=== PATIENT | male | born 1985 | race Two or more races ===

== ENCOUNTER 2024-10-20 16:37 | Emergency (ER) | payer MEDICAID, SELFPAY ==
[2024-10-20 16:38] VITALS: BMI 30.5
[2024-10-20 17:02] VITALS: BP 164/95; PULSE 71; RESP 17; TEMP 36.8; O2SAT 100
--- NOTE | 2024-10-20 17:15 | XR_ITS ---
Examination: CT abdomen and pelvis without contrast. Coronal 3-D reconstructions. Sagittal 2-D reconstructions. Date and time of exam:October 20, 2024 1739 hrs. Indications: Left-sided flank pain beginning one hour ago Comparison October 22, 2023 CTDI: vol (mGy): 10.2 DLP: (mGycm): 558 Technique: Axial images of the abdomen have been obtained, 3 mm slice thickness Intravenous contrast material has not been administered. Low dose protocols were performed. One or more of the following dose reduction techniques were used; automated exposure control, adjustment of the mA and/or KV according to patient size, use of iterative reconstruction technique. Findings: No focal liver or splenic lesions No gallstones No pancreatic mass 4 mm lower pole left renal calculus Mild left hydronephrosis 6 mm left ureteropelvic junction calculus Aorta normal size No bowel obstruction Absent appendix No bladder mass or bladder calculi Grade 1 spondylolisthesis L5 on S1 Impression: Mild left hydronephrosis secondary to 6 mm ureteropelvic junction calculus
--- NOTE | 2024-10-20 17:16 | PD.EDRME ---
Rapid Medical Screening Exam RME Arrival date/time: 10/20/24 16:37 39-year-old male presents to the emergency department with complaints of left flank pain that began 2 hours ago. History of nephrolithiasis. I have greeted and performed a focused initial assessment of this patient. Initial appropriate labs ordered at this time. A comprehensive ED assessment and evaluation of the patient and analysis of all test and completion of medical decision making process will be conducted by additional ED provider. Chief Complaint: Abdominal Pain Time Seen by Provider: 10/20/24 16:55 Vital signs: Vital Signs Temperature 98.3 F 10/20/24 17:02 Pulse Rate 71 10/20/24 17:02 Respiratory Rate 17 10/20/24 17:02 Blood Pressure 164/95 H 10/20/24 17:02 Pulse Oximetry (%) 100 10/20/24 17:02 Oxygen Delivery Method Room Air 10/20/24 17:02
[2024-10-20] MEDS: KETOROLAC INJ 60 MG/2 ML VIAL IM (17:22)
[2024-10-20] MEDS: TAMSULOSIN HCL 0.4 MG CAPSULE PO (17:23)
[2024-10-20 17:38] LABS: Basophils % (Auto) 0 % (0-2.5); Eosinophils # (Auto) 0.2 Thou/mm3 (0.0-0.5); Eosinophils % (Auto) 2 % (0-10); Hemoglobin 15.4 g/dL (13.5-16.0); Immature Granulocytes % (Auto) 0 % (0-0); Immature Granulocytes Auto 0.03 Thou/mm3 (0.00-0.00); Lymphocytes # (Auto) 2.6 Thou/mm3 (1.0-4.8); Lymphocytes % (Auto) 29 % (10-50); Mean Corpuscular HGB Conc 33.5 g/dl (31.0-37.0); Mean Corpuscular Hemoglobin 26.1 pg (25.0-35.0); Mean Corpuscular Volume 78 fL (80-100); Monocytes # (Auto) 0.4 Thou/mm3 (0.0-0.8); Monocytes % (Auto) 5 % (0-12); Neutrophils # (Auto) 5.9 Thou/mm3 (1.8-7.7); Neutrophils % (Auto) 64 % (37-80); Nucleated Red Blood Cell % 0 /100 WBC (0); Platelet Count 240 Thou/mm3 (140-440); RDW Standard Deviation 42.2 fL (35.1-43.9); Red Blood Count 5.89 Miln/mm3 (4.50-5.90); White Blood Count 9.2 Thou/mm3 (3.8-10.6)
[2024-10-20 17:56] LABS: Prothrombin Time 10.9 Seconds (9.0-12.2)
[2024-10-20 18:01] LABS: Alanine Aminotransferase 29 U/L (10-49); Albumin, Serum 5.3 gm/dL (3.5-5.0); Alkaline Phosphatase 81 U/L (46-116); Anion Gap 12 (7-16); Aspartate Amino Transferase 23 U/L (0-34); BUN/Creatinine Ratio 14 Ratio (12-20); Bilirubin,Total 0.6 mg/dL (0.3-1.2); Blood Urea Nitrogen 15 mg/dL (9-23); Calcium 9.4 mg/dL (8.3-10.6); Calcium (Corrected) 9.4 mg/dL (8.5-10.1); Carbon Dioxide 23.9 mMol/L (20.0-31.0); Chloride 105 mMol/L (98-107); Creatinine (Component) 1.1 mg/dL (0.6-1.3); Estimated Creatinine Clearance 97.6 mL/min (>60); Globulin 2.7 gm/dL (2.3-3.5); Glucose 112 mg/dL (74-106); Lipase 31 U/L (12-53); Osmolality,Calculated 283 (275-295); Potassium 3.7 mMol/L (3.4-5.1); Sodium 141 mMol/L (136-145); eGFR > 60 See Note
[2024-10-20 18:45] LABS: Collection Type, Urine Clean Catch
[2024-10-20 18:50] LABS: Bilirubin,Urine Negative (Negative); Blood,Urine 3+ (Negative); Clarity,Urine Turbid (Clear/Hazy); Color,Urine Yellow (Lt Yel-Yel); Glucose, Urine Negative (Negative); Ketones,Urine Trace (Negative); Leukocyte Esterase,Urine Negative (Negative); Nitrite,Urine Negative (Negative); Protein,Urine 1+ (Neg - Trace); RBC,Urine 218 /hpf (0-3); Specific Gravity,Urine 1.034 (1.001-1.035); Squamous Epithelial Cell,Urine 4 /hpf (0-5); Urobilinogen,Urine Negative mg/dL (0.0-1.0); WBC,Urine 6 /hpf (0-5)
[2024-10-20 19:38] VITALS: BP 134/79; PULSE 72; RESP 18; TEMP 36.7; O2SAT 95
--- NOTE | 2024-10-20 20:01 | EDNOTE_ITS ---
<Statement entered by Riddhi Larios MD - 10/28/24 17:46> As co-signing physician, I was present and available for consult prn. I concur with the plan and care as documented by the midlevel provider. ED Abdominal Pain RME/HPI General Chief Complaint: Abdominal Pain Stated complaint: LEFT FLANK PAIN RADIATING TO FRONT LEG X30MIN Time seen by provider: 10/20/24 16:55 Arrival date/time: 10/20/24 16:37 This is a 39-year-old male that comes in with complaints of left flank pain that started prior to arrival. Patient has a history of kidney stones in the past. Patient has had lithotripsy done in the past along with an appendectomy. Patient states his last kidney stone was in 2008. Patient also reports symptoms of GERD in the past. Patient denies fever, chills, nausea, vomiting, diarrhea. Limitations: no limitations RME / HPI RME / HPI narrative: 10/20/24 16:37 39-year-old male presents to the emergency department with complaints of left flank pain that began 2 hours ago. History of nephrolithiasis. I have greeted and performed a focused initial assessment of this patient. Initial appropriate labs ordered at this time. A comprehensive ED assessment and evaluation of the patient and analysis of all test and completion of medical decision making process will be conducted by additional ED provider. Related Data Previous Rx's ?Medication ?Instructions ?Recorded famotidine 40 mg tablet (Pepcid) 40 mg PO QDAY #30 tabs 02/29/20 naproxen 500 mg tablet (Naprosyn) 500 mg PO BID PRN pain #30 tabs 03/15/22 cephalexin 500 mg capsule 500 mg PO Q8H #30 caps 10/22/23 ibuprofen 800 mg tablet 800 mg PO TID #30 tabs 10/22/23 hydrocodone 5 mg-acetaminophen 325 1 tab PO Q8H PRN pain #7 tabs 10/20/24 mg tablet ibuprofen 800 mg tablet 800 mg PO Q6H PRN pain #10 tabs 10/20/24 tamsulosin 0.4 mg capsule (Flomax) 0.4 mg PO QDAY #14 caps 10/20/24 Allergies Allergy/AdvReac Type Severity Reaction Status Date / Time No Known Allergies Allergy Verified 10/20/24 16:40 Review of Systems Review of Systems Systems Reviewed: All systems reviewed, normal except as documented Past Medical History Past Medical History GASTROINTESTINAL: Positive Gastrointestinal Disorders and Gastroesophageal Reflux Disease GENITOURINARY: Positive Genitourinary Disorders and Kidney Stones Social History SMOKING STATUS: Never smoker SUBSTANCE USE: marijuana ED Exam General Limitations: Present no limitations General appearance: Present alert and in no apparent distress Head Head exam: Present atraumatic Eye Eye exam: Present normal appearance, PERRL and EOMI ENT ENT exam: Present normal exam, normal oropharynx and mucous membranes moist Neck Neck exam: Present normal inspection, full ROM and trachea midline Chest Chest inspection: Present normal inspection and symmetric chest wall rise Respiratory Respiratory exam: Present normal lung sounds bilaterally Cardiovascular Cardiovascular exam: Present regular rate, normal rhythm and normal heart sounds Abdominal Exam Abdominal exam: Present soft and other (soft nontender ) Extremities Exam Extremities exam: Present normal inspection and full ROM Back Exam Back exam: Present normal inspection and full ROM Neurological Exam Neurological exam: Present alert, oriented X3 and CN II-XII intact Psychiatric Psychiatric exam: Present normal affect and normal mood Skin Skin exam: Present warm, dry, intact and normal color Course Quality Measures none Orders Category Date Time Status NPO STAT Care 10/20/24 17:[address] abdomen pelvis wo con Stat Exams 10/20/24 17:15 Completed CBC Stat Lab 10/20/24 17:30 Completed Comprehensive Metabolic Panel Stat Lab 10/20/24 17:30 Completed Lipase Stat Lab 10/20/24 17:30 Completed Prothrombin Time with INR Stat Lab 10/20/24 17:30 Completed Urinalysis Stat Lab 10/20/24 18:11 Completed Ketorolac Inj [Toradol Inj] Med 10/20/24 17:14 Discontinued 60 mg IM X1 ONE Tamsulosin HCl [Flomax] Med 10/20/24 17:14 Discontinued 0.4 mg PO X1 ONE Vital Signs Vital signs: Vital Signs Temperature 98.3 F 10/20/24 17:02 Pulse Rate 71 10/20/24 17:02 Respiratory Rate 17 10/20/24 17:02 Blood Pressure 164/95 H 10/20/24 17:02 Pulse Oximetry (%) 100 10/20/24 17:02 Oxygen Delivery Method Room Air 10/20/24 17:02 Abdominal Pain MDM MDM Narrative MDM Narrative:: CT abdomen and pelvis: Findings: No focal liver or splenic lesions No gallstones No pancreatic mass 4 mm lower pole left renal calculus Mild left hydronephrosis 6 mm left ureteropelvic junction calculus Aorta normal size No bowel obstruction Absent appendix No bladder mass or bladder calculi Grade 1 spondylolisthesis L5 on S1 Impression: Mild left hydronephrosis secondary to 6 mm ureteropelvic junction calculus Labs reviewed. CBc and bmp unremarkable. Pt urine showed blood but no infection. Pt given toradol flomax for pain which helped. Pt explained importance of following up with pmd in 1-2 days. Patient data External records reviewed:: [facility] previous records Clinical information provided by:: patient Social determinants that could affect healthcare access:: none Patient has the following chronic illnesses:: none How is presenting disease/condition affected by chronic disease/condition?: no chronic disease Evaluation data The following diagnostics were reviewed and interpreted by me:: lab results and radiology exam(s) Lab and/or radiology exams considered but not ordered:: none Interpretation Summary: see note Medications / Prescriptions Medications or Prescriptions considered but not ordered:: none Medication administrations:: Medication Administration History Discontinued Medications Ketorolac Tromethamine (Ketorolac Inj 60 Mg/2 Ml Vial) 60 mg IM X1 ONE Stop: 10/20/24 17:15 Last Admin: 10/20/24 17:22 Dose: 60 mg Documented By: Tamsulosin HCl (Tamsulosin Hcl 0.4 Mg Capsule) 0.4 mg PO X1 ONE Stop: 10/20/24 17:15 Last Admin: 10/20/24 17:23 Dose: 0.4 mg Documented By: see mar Consultations Consultation(s) initiated? (list below): No Diagnosis Differential diagnosis abdominal pain: abdominal pain, acute appendicitis, calculus of kidney, constipation and other (uti ) Most likely diagnosis given after review of the tests above:: kidney stones Admission Indicated Admission indicated?: indicated Admission Request Was there a request for admission?: No Disposition Plan Disposition Plan: Discharge Discharge Attestation Discharge Attestation: The patient and all family members were given an opportunity to ask questions and understood the discharge instructions. Discharge instructions specifically effects, indications for sooner follow up or return to the emergency department, and the expected course of current diagnosis. Patient condition: Stable Discharge Plan Plan Patient Disposition: HOME (Self Care) Patient condition on transfer: Stable Prescriptions/Referrals Prescriptions/Med Rec: New tamsulosin [Flomax] 0.4 mg capsule 0.4 mg PO QDAY Qty: 14 0RF ibuprofen 800 mg tablet 800 mg PO Q6H PRN (Reason: pain) Qty: 10 0RF hydrocodone-acetaminophen 5-325 mg tablet 1 tab PO Q8H MDD 3 PRN (Reason: pain) Qty: 7 0RF No Action famotidine [Pepcid] 40 mg tablet 40 mg PO QDAY Qty: 30 0RF naproxen [Naprosyn] 500 mg tablet 500 mg PO BID PRN (Reason: pain) Qty: 30 0RF ibuprofen 800 mg tablet 800 mg PO TID Qty: 30 0RF cephalexin 500 mg capsule 500 mg PO Q8H Qty: 30 0RF Referrals: Wili Flores MD [Primary Care Provider] - In 1 week Problem List Clinical Impression: Hematuria, Kidney stone Patient/Caregiver Discharge Instructions Discharge Activity: activity as tolerated Education Materials: Treating Kidney Stones ..., ED Hematuria Additional Instructions: Llame y programe martina ham con conte proveedor primario en 1 o 2 d?as para un seguimiento. Regrese a la fermin de emergencias si los s?ntomas cambian o empeoran. [place] analg?sicos si es necesario Seg?n lo prescrito Please call and make an appointment with primary provider in 1 to 2 days for follow-up. Come back to the emergency room if symptoms change or worsen. Take pain medication if needed As prescribed Print Language: German Stand Alone Forms: Nery Award Info., Work/School Release, Patient Portal Info Letter DEEJAY/SON Supervising Physician GIANFRANCO Supervising Physician: negrito
== END 2024-10-20 20:18 | disposition home or self-care (01) ==
PROVIDERS: Nurse Practitioner Primary Care; Emergency Provider Emergency Medicine; PCP Family Medicine
DX: N13.2 Hydronephrosis with renal and ureteral calculous obstruction (principal)
CPT/HCPCS: 36415; 74176; 80053; 81001; 83690; 85025; 85610; 96372; 99284; J1885; A9270

== ENCOUNTER → 2024-10-31 | Outpatient (BNVA) | payer MEDICAID, SELFPAY | END | disposition home or self-care (01) | PROVIDERS: Visit Provider Urology | DX: N40.1 Benign prostatic hyperplasia with lower urinary tract symptoms (principal); N13.8 Other obstructive and reflux uropathy; Z87.442 Personal history of urinary calculi; N13.2 Hydronephrosis with renal and ureteral calculous obstruction; K21.9 Gastro-esophageal reflux disease without esophagitis | CPT/HCPCS: 81003; 99212; G0463 ==

== ENCOUNTER 2024-11-04 08:00 | Inpatient (IN) | payer MEDICAID, SELFPAY ==
[2024-11-04 08:00] VITALS: BMI 32.3
[2024-11-04 08:23] VITALS: BP 161/92; PULSE 69; RESP 19; TEMP 36.9; O2SAT 98
--- NOTE | 2024-11-04 08:33 | XR_ITS ---
Examination: CT abdomen and pelvis without contrast. Coronal 3-D reconstructions. Sagittal 2-D reconstructions. Date and time of exam:November 04, 2024 0849 hours INDICATIONS: Left-sided flank pain onset today CTDI: vol (mGy): 9.11 DLP: (mGycm): 530 Technique: Axial images of the abdomen have been obtained, 3 mm slice thickness Intravenous contrast material has not been administered. Low dose protocols were performed. One or more of the following dose reduction techniques were used; automated exposure control, adjustment of the mA and/or KV according to patient size, use of iterative reconstruction technique. Findings: No focal liver or splenic lesions No gallstones No pancreatic or adrenal mass Mild left hydronephrosis, 2 mm lower pole left renal calculus, 6 mm distal left ureteral calculus Aorta normal size No bowel obstruction No pericecal inflammatory change Absent appendix Urinary bladder intact IMPRESSION: Mild left hydronephrosis, 6 mm distal left ureteral calculus
[2024-11-04] MEDS: ONDANSETRON ODT 4 MG TABRAP PO (08:42)
[2024-11-04] MEDS: HYDROcodone/APAP 5/325 TABLET 1 TAB PO (08:42)
[2024-11-04] MEDS: KETOROLAC INJ 30 MG/ML VIAL IM (08:43)
--- NOTE | 2024-11-04 08:51 | PD.EDRME ---
Rapid Medical Screening Exam RME Arrival date/time: 11/04/24 08:00 39-year-old male with history of kidney stone presents emergency department complaints of left flank pain Chief Complaint: Abdominal Pain Time Seen by Provider: 11/04/24 08:29 Vital signs: Vital Signs Temperature 98.5 F 11/04/24 08:23 Pulse Rate 69 11/04/24 08:23 Respiratory Rate 19 11/04/24 08:23 Blood Pressure 161/92 H 11/04/24 08:23 Pulse Oximetry (%) 98 11/04/24 08:23 Oxygen Delivery Method Room Air 11/04/24 08:23
[2024-11-04 09:15] LABS: Collection Type, Urine Clean Catch
[2024-11-04 09:22] LABS: Basophils % (Auto) 0 % (0-2.5); Eosinophils # (Auto) 0.1 Thou/mm3 (0.0-0.5); Eosinophils % (Auto) 2 % (0-10); Hematocrit 46.3 % (41.0-53.0); Hemoglobin 15.1 g/dL (13.5-16.0); Immature Granulocytes % (Auto) 0 % (0-0); Immature Granulocytes Auto 0.01 Thou/mm3 (0.00-0.00); Lymphocytes # (Auto) 2.1 Thou/mm3 (1.0-4.8); Lymphocytes % (Auto) 37 % (10-50); Mean Corpuscular HGB Conc 32.6 g/dl (31.0-37.0); Mean Corpuscular Volume 80 fL (80-100); Monocytes # (Auto) 0.3 Thou/mm3 (0.0-0.8); Monocytes % (Auto) 6 % (0-12); Neutrophils # (Auto) 3.1 Thou/mm3 (1.8-7.7); Neutrophils % (Auto) 54 % (37-80); Nucleated Red Blood Cell % 0 /100 WBC (0); Platelet Count 201 Thou/mm3 (140-440); RDW Standard Deviation 43.9 fL (35.1-43.9); Red Blood Count 5.81 Miln/mm3 (4.50-5.90); White Blood Count 5.7 Thou/mm3 (3.8-10.6)
[2024-11-04 09:43] LABS: Alanine Aminotransferase 19 U/L (10-49); Albumin/Globulin Ratio 1.7 (1.2-2.2); Alkaline Phosphatase 74 U/L (46-116); Anion Gap 11 (7-16); Aspartate Amino Transferase 21 U/L (0-34); BUN/Creatinine Ratio 16 Ratio (12-20); Bilirubin,Total 0.7 mg/dL (0.3-1.2); Blood Urea Nitrogen 16 mg/dL (9-23); Calcium 9.9 mg/dL (8.3-10.6); Calcium (Corrected) 9.9 mg/dL (8.5-10.1); Carbon Dioxide 24.8 mMol/L (20.0-31.0); Chloride 104 mMol/L (98-107); Estimated Creatinine Clearance 106.7 mL/min (>60); Glucose 106 mg/dL (74-106); Lipase 35 U/L (12-53); Osmolality,Calculated 280 (275-295); Potassium 3.7 mMol/L (3.4-5.1); Sodium 140 mMol/L (136-145); eGFR > 60 See Note
[2024-11-04 09:45] LABS: Bilirubin,Urine Negative (Negative); Blood,Urine 3+ (Negative); Clarity,Urine Clear (Clear/Hazy); Color,Urine Yellow (Lt Yel-Yel); Glucose, Urine Negative (Negative); Ketones,Urine 1+ (Negative); Leukocyte Esterase,Urine Positive (Negative); Nitrite,Urine Negative (Negative); PH,Urine 6.5 (5.0-7.0); Protein,Urine 2+ (Neg - Trace); RBC,Urine 17 /hpf (0-3); Specific Gravity,Urine 1.043 (1.001-1.035); Squamous Epithelial Cell,Urine 5 /hpf (0-5); WBC,Urine 11 /hpf (0-5)
[2024-11-04 09:54] LABS: Culture Indicated,Urine Yes
[2024-11-04] MEDS: KETOROLAC INJ 30 MG/ML VIAL IVP (13:09)
[2024-11-04] MEDS: ONDANSETRON INJ 2 MG/ML INJ 2 ML 4 MG IV (13:09)
[2024-11-04] MEDS: MORPHINE SULF INJ 10 MG/ML VIAL 4 MG IVP (13:10)
[2024-11-04] MEDS: SODIUM CHLORIDE 0.9% 1000 ML 1,000 ML 999 ML IV (13:18)
--- NOTE | 2024-11-04 13:20 | PD.EDABDPN ---
ED Abdominal Pain RME/HPI General Chief Complaint: Abdominal Pain Stated complaint: LEFT FLANK PAIN, HX OF KIDNEY STONES Time seen by provider: 11/04/24 08:29 Arrival date/time: 11/04/24 08:00 RME / HPI RME / HPI narrative: 11/04/24 08:00 39-year-old male with history of kidney stone presents emergency department complaints of left flank pain DR. GROSSMAN MAIN ED EVALUATION 39 year old male with history of kidney stones s/p ESWL presents to the ED for complaint of left flank and left lower abdominal pain beginning 15 days ago and worsening last night. Described as aching stabbing in sensation that is rated 9/10 in severity that was not improved with Ibuprofen at home. Accompanied by urine hesitancy and dysuria beginning today. Reportedly was evaluated here 15 days ago where he was diagnosed with a kidney stone. States he followed up with PCP at [facility] who referred him to urologist Dr. Perez. States he saw urologist Dr. Perez 4 days ago and is scheduled to have surgery 11/27/2024. States he was advised to return to the ED if his pain worsened. Denies any fevers, chills, or vomiting. Related Data Previous Rx's ?Medication ?Instructions ?Recorded famotidine 40 mg tablet (Pepcid) 40 mg PO QDAY #30 tabs 02/29/20 ibuprofen 800 mg tablet 800 mg PO Q6H PRN pain #10 tabs 10/20/24 tamsulosin 0.4 mg capsule (Flomax) 0.4 mg PO QDAY #14 caps 10/20/24 Allergies Allergy/AdvReac Type Severity Reaction Status Date / Time No Known Allergies Allergy Verified 11/04/24 08:02 Review of Systems Review of Systems Narrative Review of Systems: GEN: No fever, no chills, no weight loss EYES: No discharge, no visual changes, no pain HEENT: No ear pain, no congestion, no sore throat PULM: No shortness of breath, no cough, no congestion CV: No chest pain, no dyspnea on exertion, no palpitations GI: No nausea, no vomiting, no diarrhea, +pain, no constipation : +urine hesitancy, +dysuria MUSC/SKEL No joint pain, +left flank/back pain SKIN: No rash PSYCH: No hallucinations, no depression HEME/LYMPH: No easy bleeding or bruising tendencies NEURO: No weakness, no headache Past Medical History Past Medical History GASTROINTESTINAL: Positive Gastrointestinal Disorders and Gastroesophageal Reflux Disease GENITOURINARY: Positive Genitourinary Disorders and Kidney Stones Social History SMOKING STATUS: Never smoker SUBSTANCE USE: marijuana ED Exam Narrative Physical exam: GENERAL APPEARANCE: Well hydrated, well nourished, appears to be in pain. VITALS: All vitals were reviewed and the pulse ox is 98% on room air which is normal according to my interpretation. HEENT: Normocephalic, atramatic, EOMI, EACs are patent. There is no bulge or retraction. Throat without erythema or exudate. Moist oromucosa. No jaundice NECK: Supple, no JVD or bruits. CARDIOVASCULAR: Heart regular without S3-S4 or murmur. No rubs or gallops. LUNGS/CHEST: Clear to auscultation bilaterally. No rales, rhonchi, or wheezing. Normal inspection. ABDOMEN: Soft, tenderness to the left lower abdomen and left flank, with normal bowel sounds. No pulsatile masses. No rebound, rigidity, or guarding. No incarcerated hernia. EXTREMITIES: Normal inspection and palpation. No edema, clubbing, or cyanosis. Intact CSM SKIN: Warm and dry without rashes. Normal inspection. MUSCULOSKELETAL: Normal inspection. No gross deformity, full ROM all extremities NEURO: Alert and oriented x3. Cranial nerves II through XII grossly intact. There are no other motor or sensory deficits noted. PSYCHIATRIC: Normal mood and affect. No psychosis Course Quality Measures none Orders Category Date Time Status Consult to Urology Stat Cons 11/04/24 15:[address] abdomen pelvis wo con Stat Exams 11/04/24 08:33 Completed CBC Stat Lab 11/04/24 09:01 Completed Comprehensive Metabolic Panel Stat Lab 11/04/24 09:01 Completed Lipase Stat Lab 11/04/24 09:01 Completed UA, C/S IF [Urinalysis, C/S if Indicated] Stat Lab 11/04/24 09:02 Completed Urine Culture Stat Lab 11/04/24 09:02 Received HYDROcodone*/APAP 5/325 [[place] 5/325] Med 11/04/24 08:33 Discontinued 1 tab PO X1 ONE Ketorolac Inj [Toradol Inj] Med 11/04/24 08:33 Discontinued 30 mg IM X1 ONE Ketorolac Inj [Toradol Inj] Med 11/04/24 12:57 Discontinued 30 mg IVP X1 ONE Morphine Inj Med 11/04/24 12:57 Discontinued 4 mg IVP X1 ONE Ondansetron Inj [Zofran Inj] Med 11/04/24 12:57 Discontinued 4 mg IV X1 ONE Ondansetron Odt [Zofran Odt] Med 11/04/24 08:33 Discontinued 4 mg PO X1 ONE Sodium Chloride 0.9% 1000 ml [Ns] 1,000 ml Med 11/04/24 12:57 Discontinued IV 999 mls/hr Vital Signs Vital signs: Vital Signs Temperature 98.5 F 11/04/24 08:23 Pulse Rate 69 11/04/24 08:23 Respiratory Rate 19 11/04/24 08:23 Blood Pressure 161/92 H 11/04/24 08:23 Pulse Oximetry (%) 98 11/04/24 08:23 Oxygen Delivery Method Room Air 11/04/24 08:23 Abdominal Pain MDM MDM Narrative MDM Narrative:: IMary am scribing for and in the presence of Dr. Grossman. CBC unremarkable. CMP and lipase are negative. UA showing some blood microscopically. CT abdomen and pelvic was reviewed and interpreted by me as follow: 6 mm stone in the left distal ureter with moderate hydronephrosis and hydroureter proximal to it. Bladder is unremarkable. The right kidney unremarkable. No free air. No free fluid. No evidence of bowel obstruction. In the emergency department the patient received IV fluid, pain medication with some relief. But the pain still remains. 3:30 PM, I spoke to discussed with , his urologist. He said to admit to hospitalist and he will continue to consult on admission. 3:40 PM, I spoke to and discussed with Dr. Aguirre resident of Dr. Halima Eagle he agrees to discussed with his attending to admit the patient for further evaluation and treatment. Thank you Patient data External records reviewed:: [facility] previous records (I reviewed ED visit on 10/20/2024 ) Clinical information provided by:: patient Social determinants that could affect healthcare access:: none Patient has the following chronic illnesses:: Kidney stones, s/p ESWL How is presenting disease/condition affected by chronic disease/condition?: exacerbated by Evaluation data The following diagnostics were reviewed and interpreted by me:: lab results and radiology exam(s) Lab and/or radiology exams considered but not ordered:: None Interpretation Summary: Ordering Physician: Jenny ANTOINE)Stevie NP Date of Service: 11/04/24 Procedure(s): CT abdomen pelvis wo con Accession Number(s): [id number] cc: Jenny ANTOINE),Stevie LUCAS; Conner Salas PA-C; Drew Blankenship MD~ Examination: CT abdomen and pelvis without contrast. Coronal 3-D reconstructions. Sagittal 2-D reconstructions. Date and time of exam:November 04, 2024 0849 hours INDICATIONS: Left-sided flank pain onset today CTDI: vol (mGy): 9.11 DLP: (mGycm): 530 Technique: Axial images of the abdomen have been obtained, 3 mm slice thickness Intravenous contrast material has not been administered. Low dose protocols were performed. One or more of the following dose reduction techniques were used; automated exposure control, adjustment of the mA and/or KV according to patient size, use of iterative reconstruction technique. Findings: No focal liver or splenic lesions No gallstones No pancreatic or adrenal mass Mild left hydronephrosis, 2 mm lower pole left renal calculus, 6 mm distal left ureteral calculus Aorta normal size No bowel obstruction No pericecal inflammatory change Absent appendix Urinary bladder intact IMPRESSION: Mild left hydronephrosis, 6 mm distal left ureteral calculus Dictated By: Drew Blankenship MD Signed By: <Electronically signed by Drew Blankenship MD in OV> 11/04/24 0929 Medications / Prescriptions Medications or Prescriptions considered but not ordered:: None Medication administrations:: Medication Administration History Discontinued Medications Hydrocodone Bitart/Acetaminophen (Hydrocodone/Apap 5/325 Tablet) 1 tab PO X1 ONE Stop: 11/04/24 08:34 Last Admin: 11/04/24 08:42 Dose: 1 tab Documented By: AKIN Sodium Chloride (Ns) 1,000 mls @ 999 mls/hr IV .Q1H1M ONE Stop: 11/04/24 13:57 Last Infusion: 11/04/24 14:13 Dose: Infused Documented By: Admin: 11/04/24 13:18 Dose: 999 mls/hr Documented By: ÁNGELA Ketorolac Tromethamine (Ketorolac Inj 30 Mg/Ml Vial) 30 mg IM X1 ONE Stop: 11/04/24 08:34 Last Admin: 11/04/24 08:43 Dose: 30 mg Documented By: AKIN Ketorolac Tromethamine (Ketorolac Inj 30 Mg/Ml Vial) 30 mg IVP X1 ONE Stop: 11/04/24 12:58 Last Admin: 11/04/24 13:09 Dose: 30 mg Documented By: KB Morphine Sulfate (Morphine Sulf Inj 10 Mg/Ml Vial) 4 mg IVP X1 ONE Stop: 11/04/24 12:58 Last Admin: 11/04/24 13:10 Dose: 4 mg Documented By: KB Ondansetron HCl (Ondansetron Odt 4 Mg Tabrap) 4 mg PO X1 ONE; Protocol Stop: 11/04/24 08:34 Last Admin: 11/04/24 08:42 Dose: 4 mg Documented By: AKIN Ondansetron HCl (Ondansetron Inj 2 Mg/Ml Inj 2 Ml) 4 mg IV X1 ONE; Protocol Stop: 11/04/24 12:58 Last Admin: 11/04/24 13:09 Dose: 4 mg Documented By: KB See above Consultations Consultation(s) initiated? (list below): Yes Consultation #1 (Physician, Specialty, Details): I spoke with urologist Dr. Perez. He agrees to consult. Consultation #2 (Physician, Specialty, Details): I spoke with hospitalist Dr. Garcia. He accepts the patient for admission. Diagnosis Differential diagnosis abdominal pain: abdominal pain, calculus of kidney and other (pyelonephritis ) Most likely diagnosis given after review of the tests above:: Obstructive uropathy Admission Indicated Admission indicated?: indicated Admission Request Was there a request for admission?: Yes Admission Attestation Admission request attestation: Discussed case with [] from Hospitalist service regarding admission. Discussed patients ED course, exam findings, labs, and radiology results. The Hospitalist [agrees,declines] to accept the patient for admission. Disposition Plan Disposition Plan: Admit Discharge Plan Plan Patient Disposition: Admit Acute Care w/in Hospital Disposition Comment: Stable for admit Prescriptions/Referrals Prescriptions/Med Rec: No Action famotidine [Pepcid] 40 mg tablet 40 mg PO QDAY Qty: 30 0RF tamsulosin [Flomax] 0.4 mg capsule 0.4 mg PO QDAY Qty: 14 0RF ibuprofen 800 mg tablet 800 mg PO Q6H PRN (Reason: pain) Qty: 10 0RF Referrals: Conner Salas PA-C [Primary Care Provider] - In 1 week Problem List Clinical Impression: Obstructive uropathy Patient/Caregiver Discharge Instructions Print Language: Yoruba Stand Alone Forms: Nery Award Info., Patient Portal Info Letter
--- NOTE | 2024-11-04 16:06 | ESHP_ITS ---
<Statement entered by Karthik Garcia MD - 11/19/24 09:37> I reviewed above note and agree with findings and plans. I have also personally examined the patient with medicine team and went over assessment and plan with medical team including automotive internet sales consultant and resident physician. <Statement entered by Carla Hi MD - 11/04/24 17:26> Patient was seen and examined at bedside. He is a 39-year-old male patient with history of recurrent kidney stones, he is following up with Dr. Perez last time so Dr. Perez was on Monday and she recommended the patient to come to the ED if his kidney stones worsens. And review of the patient's chart we noted that he has left-sided kidney stones that was found at second time on the ureteropelvic junction of the left kidney, today CT scan showed that the stone is 6 mm and dislocated at the distal part of the left ureter. Patient denied any fever or chills. He reported that he does not drink water and he drinks up to 6 bottles of soda. He denied any similar symptoms and family members. He denied seeing any stones passing with urine. The ED physician contacted Dr. Perez who recommended to admit the patient with pain control and IV fluids and he will see him on Monday for possible intervention. On examination there was no CVA tenderness. - Patient's plan and care discussed with my attending, Dr. Radha Hi MD Internal Medicine PGY-2 Documentation for date of: 11/04/24 HPI History of Present Illness Chief complaint: renal calculi History of present illness: 39 y/o former smoker M with PMHx of Kidney stones s/p lithothrypsy, GERD was sent to the ED by Urology Dr. Perez, as patient was complaining of 10/10 abdominal pain radiating to the groin. Patient has been having achy, stabbing pain in the left flank since 15 days ago but last night the pain began to worsen. Patient had a surgery pending with Urology, however patient started developing immense pain since last night and was told to come to the ED. Patient has poor diet including drinking 6 pack of soda everyday, minimal water intake, as well as poor diet. Patient also states some urinary hesitancy and dribling, and burning sensation with urination but no blood or clots noted. Urology will come to evaluate patient on 11/06/2024. Denies headache, chest pain, shortness of breath, nausea, vomiting. ED course: Vitals on arrival signficant for some hypertension 161/92, Labs unremarkable. UA was done showed some blood and WBCs. CT abdomen pelvis was done and showed Mild left hydronephrosis, 6 mm distal left ureteral calculus. In the ED he was given 1L NS, Hydrocodone, morphine, zofran and ketorolac x2 PMHx: GERD, Renal calculi SxHx: Appendectomy, Lithothrypsy FHx: Diabtes and HTN Social Hx: THC everyday, former smoker quit 8 years ago, social alcohol use Review of Systems Review of Systems Narrative Review of Systems: Narrative ROS GENERAL: Denies fevers/chills or diaphoresis. HEENT: Denies headache or visual/hearing changes. Denies nasal discharge. NEURO: Denies unusual weakness or difficulty speaking. CARDIO: Denies chest pain or palpitations. PULM: Denies SOB, coughing, or wheezing. GI: + abdominal pain, denies N/V/C/D/reflux/gas, bright red blood per rectum or melena. Reports having BMs. URO: + burning/pain/urinary changes. MSK/EXT/SKIN: Denies joint/skeletal/muscle pain, issues/changes in upper or lower extremities, itchiness, or superficial pain. PSYCH: Cooperative, pleasant mood & affect. The rest of the review of systems is otherwise negative. Exam Vital Signs Temp Pulse Resp BP Pulse Ox O2 Del Method 98.5 F 69 19 161/92 H 98 Room Air 11/04/24 08:23 11/04/24 08:23 11/04/24 08:23 11/04/24 08:23 11/04/24 08:23 11/04/24 08:23 Narrative Exam Physical Exam GENERAL: NAD, NC/AT, responsive/cooperative. A&Ox3 HEENT: Moist mucosa. Eyes open, symmetrical, & clear CARDIO: No chest pain on palpation. Heart RRR, no obvious murmurs PULM: No noted coughing/dyspnea. Lungs CTA B/L, no R/W/R GI: abdomen soft, nondistended, pain on palpation of left abdomen radiating to the groin SKIN/MSK/EXT: No wounds/rashes/edema/amputations, no pain on palpation. Pedal pulses present B/L NEURO: AAOX3, no focal neuro deficits, able to move all 4 extremities Results: Labs 11/04/24 09:01 11/04/24 09:01 Labs: Short CBC 11/04/24 Range/Units 09:01 WBC 5.7 (3.8-10.6) Thou/mm3 Hgb 15.1 (13.5-16.0) g/dL Hct 46.3 (41.0-53.0) % Plt Count 201 D (140-440) Thou/mm3 BMP 11/04/24 09:01 Sodium 140 Potassium 3.7 Chloride 104 Carbon Dioxide 24.8 BUN 16 Creatinine 1.0 Glucose 106 Calcium 9.9 Liver Function 11/04/24 Range/Units 09:01 Total Bilirubin 0.7 (0.3-1.2) mg/dL AST 21 (0-34) U/L ALT 19 (10-49) U/L Alkaline Phosphatase 74 (46-116) U/L Albumin 5.0 (3.5-5.0) gm/dL Urine 11/04/24 Range/Units 09:02 Urine Color Yellow (Lt Yel-Yel) Urine Clarity Clear (Clear/Hazy) Urine pH 6.5 (5.0-7.0) Ur Specific [place] 1.043 H (1.001-1.035) Urine Protein 2+ A (Neg - Trace) Urine Glucose (UA) Negative (Negative) Quality Measures Quality Measures none Medications Home Medications and Allergies Allergies Allergy/AdvReac Type Severity Reaction Status Date / Time No Known Allergies Allergy Verified 11/04/24 08:02 Visit Medications Discontinued Medications Hydrocodone Bitart/Acetaminophen (Hydrocodone/Apap 5/325 Tablet) 1 tab PO X1 ONE Stop: 11/04/24 08:34 Last Admin: 11/04/24 08:42 Dose: 1 tab Sodium Chloride (Ns) 1,000 mls @ 999 mls/hr IV .Q1H1M ONE Stop: 11/04/24 13:57 Last Infusion: 11/04/24 14:13 Dose: Infused Ketorolac Tromethamine (Ketorolac Inj 30 Mg/Ml Vial) 30 mg IM X1 ONE Stop: 12/16/24 08:34 Last Admin: 11/04/24 08:43 Dose: 30 mg Ketorolac Tromethamine (Ketorolac Inj 30 Mg/Ml Vial) 30 mg IVP X1 ONE Stop: 11/04/24 12:58 Last Admin: 11/04/24 13:09 Dose: 30 mg Morphine Sulfate (Morphine Sulf Inj 10 Mg/Ml Vial) 4 mg IVP X1 ONE Stop: 11/04/24 12:58 Last Admin: 11/04/24 13:10 Dose: 4 mg Ondansetron HCl (Ondansetron Odt 4 Mg Tabrap) 4 mg PO X1 ONE; Protocol Stop: 11/04/24 08:34 Last Admin: 11/04/24 08:42 Dose: 4 mg Ondansetron HCl (Ondansetron Inj 2 Mg/Ml Inj 2 Ml) 4 mg IV X1 ONE; Protocol Stop: 11/04/24 12:58 Last Admin: 11/04/24 13:09 Dose: 4 mg Assessment & Plan Plan 39 y/o former smoker M with PMHX of GERD and kidney stones s/p lithotrypsy presented to the ED due to abdominal pain radiating to the groin. Admitted for management of renal calculi. Urology, Dr. Perez consulted. #left hydronephrosis #6 mm distal left ureteral calculus Patient presented with abdominal pain 10/10, radiating to the groin patient has poor diet and drinks 6pack of sodas everyday, minimal water intake has hx of stones in the past with lithotrypsy patient was sent from urology, plan to evaluate patient on monday for possible surgical intervention - Hydrocodone prn - ketorolac prn - ibuprofen prn - tamsulosin 0.4mg qday - on half maintainance IV fluids NS - strainer for calculi - Urology, Dr. Perez consulted, appreciate recommendations #GERD - on pantoprazole Case discussed with my senior Dr. Aguirre and my attending Dr. Radha Flores MD PGY-1 Disposition: Medsurg Fluids: NS Feeding: Regular Thrombo prophylaxis: SCDs, JAI 1, no need for chemical prophylaxis Gastric Ulcer prophylaxis: Pantoprazole CODE STATUS: Full code
[2024-11-04] MEDS: PANTOPRAZOLE 40 MG TABLET PO (16:43)
[2024-11-04] MEDS: SENNA TABLET 1 TAB PO (16:43)
[2024-11-04] MEDS: TAMSULOSIN HCL 0.4 MG CAPSULE PO (16:43)
[2024-11-04] MEDS: SODIUM CHLORIDE 0.9% 1000 ML 1,000 ML 75 ML IV (16:44)
[2024-11-04 18:44] VITALS: BP 129/79; PULSE 67; RESP 17; TEMP 36.8; O2SAT 97
--- NOTE | 2024-11-04 20:01 | PC.NURSE ---
report give to Susana QUINTEROS at this time.
[2024-11-04 20:26] VITALS: BMI 32.1
[2024-11-04] MEDS: MELATONIN 3 MG TABLET PO (21:38)
[2024-11-05] VITALS: BP 152/84; PULSE 79; RESP 20; TEMP 36.6; O2SAT 95
[2024-11-05 04:00] VITALS: BP 121/79; PULSE 60; RESP 18; TEMP 36.6; O2SAT 96
[2024-11-05 05:20] LABS: Basophils % (Auto) 0 % (0-2.5); Eosinophils # (Auto) 0.2 Thou/mm3 (0.0-0.5); Eosinophils % (Auto) 3 % (0-10); Hematocrit 39.1 % (41.0-53.0); Hemoglobin 12.9 g/dL (13.5-16.0); Immature Granulocytes % (Auto) 0 % (0-0); Immature Granulocytes Auto 0.01 Thou/mm3 (0.00-0.00); Lymphocytes # (Auto) 1.9 Thou/mm3 (1.0-4.8); Lymphocytes % (Auto) 36 % (10-50); Mean Corpuscular Hemoglobin 26.2 pg (25.0-35.0); Mean Corpuscular Volume 80 fL (80-100); Monocytes # (Auto) 0.4 Thou/mm3 (0.0-0.8); Monocytes % (Auto) 7 % (0-12); Neutrophils # (Auto) 2.8 Thou/mm3 (1.8-7.7); Neutrophils % (Auto) 53 % (37-80); Nucleated Red Blood Cell % 0 /100 WBC (0); Platelet Count 199 Thou/mm3 (140-440); RDW Standard Deviation 44.5 fL (35.1-43.9); Red Blood Count 4.92 Miln/mm3 (4.50-5.90); White Blood Count 5.2 Thou/mm3 (3.8-10.6)
[2024-11-05 05:39] LABS: Partial Thromboplastin Time 26.2 Seconds (22.0-36.0); Prothrombin Time 11.2 Seconds (9.0-12.2)
[2024-11-05] MEDS: SODIUM CHLORIDE 0.9% 1000 ML 1,000 ML 75 ML IV (05:53)
[2024-11-05 06:25] LABS: Alanine Aminotransferase 13 U/L (10-49); Albumin, Serum 4.1 gm/dL (3.5-5.0); Albumin/Globulin Ratio 1.8 (1.2-2.2); Alkaline Phosphatase 61 U/L (46-116); Anion Gap 8 (7-16); Aspartate Amino Transferase 13 U/L (0-34); BUN/Creatinine Ratio 16 Ratio (12-20); Bilirubin,Total 0.8 mg/dL (0.3-1.2); Blood Urea Nitrogen 14 mg/dL (9-23); Calcium 8.6 mg/dL (8.3-10.6); Calcium (Corrected) 8.6 mg/dL (8.5-10.1); Carbon Dioxide 24.3 mMol/L (20.0-31.0); Chloride 108 mMol/L (98-107); Creatinine (Component) 0.9 mg/dL (0.6-1.3); Estimated Creatinine Clearance 118.5 mL/min (>60); Globulin 2.3 gm/dL (2.3-3.5); Glucose 104 mg/dL (74-106); Magnesium 2.1 mg/dL (1.6-2.6); Osmolality,Calculated 279 (275-295); Potassium 4.1 mMol/L (3.4-5.1); Sodium 140 mMol/L (136-145); Total Protein 6.4 gm/dL (5.7-8.2); eGFR > 60 See Note
[2024-11-05 08:00] VITALS: BP 138/85; PULSE 72; RESP 18; TEMP 36.6; O2SAT 94
[2024-11-05] MEDS: TAMSULOSIN HCL 0.4 MG CAPSULE PO (08:55)
[2024-11-05] MEDS: PANTOPRAZOLE 40 MG TABLET PO (08:55)
[2024-11-05] MEDS: SENNA TABLET 1 TAB PO (08:55)
--- NOTE | 2024-11-05 08:58 | ESPR_ITS ---
<Statement entered by Karthik Garcia MD - 11/19/24 09:36> I reviewed above note and agree with findings and plans. I have also personally examined the patient with medicine team and went over assessment and plan with medical team including manager international and resident physician. <Statement entered by Carla Hi MD - 11/05/24 16:39> Patient was seen and examined at bedside. Patient vitally stable, labs within normal limits, we are waiting for the urologist recommendations. Patient denied any pain and he did not take any as needed pain medications at this time. Patient reported that he urinated normally, and there was no hematuria, no dysuria, and no fever or chills. Denied passing any stones with urine. - Patient's plan and care discussed with my attending, Dr. Radha Hi MD Internal Medicine PGY-2 Documentation for date of: 11/05/24 Subjective Subjective Interval history: Patient seen today at the bedside found awake, alert, oriented x3. No overnight events reported. States no active complaints, and that pain on admission has resolved without the use of pain medications. Vital signs stable at this time. Labs unremarkable. Pending Urology evaluation on Monday for possible surgical intervention on 11/05/2024. Exam Vital Signs Temp Pulse Resp BP Pulse Ox O2 Del Method 97.8 F 72 18 138/85 H 94 L Room Air 11/05/24 08:00 11/05/24 08:00 11/05/24 08:00 11/05/24 08:00 11/05/24 08:00 11/05/24 08:00 Narrative Exam Physical Exam GENERAL: NAD, NC/AT, responsive/cooperative. A&Ox3 HEENT: Moist mucosa. Eyes open, symmetrical, & clear CARDIO: No chest pain on palpation. Heart RRR, no obvious murmurs PULM: No noted coughing/dyspnea. Lungs CTA B/L, no R/W/R GI: abdomen soft, nondistended, pain on palpation of left abdomen radiating to the groin SKIN/MSK/EXT: No wounds/rashes/edema/amputations, no pain on palpation. Pedal pulses present B/L NEURO: AAOX3, no focal neuro deficits, able to move all 4 extremities Objective Labs 11/05/24 04:50 11/05/24 04:50 Labs: Laboratory Results - last 24 hr 11/04/24 11/04/24 11/05/24 09:01 09:02 04:50 WBC 5.7 5.2 RBC 5.81 4.92 Hgb 15.1 12.9 L D Hct 46.3 39.1 L MCV 80 80 MCH 26.0 26.2 MCHC 32.6 33.0 RDW Std Deviation 43.9 44.5 H Plt Count 201 D 199 Neut % (Auto) 54 53 Lymph % (Auto) 37 36 [place] % (Auto) 6 7 Eos % (Auto) 2 3 Baso % (Auto) 0 0 Neut # (Auto) 3.1 2.8 Lymph # (Auto) 2.1 1.9 [place] # (Auto) 0.3 0.4 Eos # (Auto) 0.1 0.2 Baso # (Auto) 0.0 0.0 Immature Gran # (Auto) 0.01 H 0.01 H Absolute Nucleated RBC 0.00 0.00 Immature Gran % 0 0 Nucleated RBC % 0 0 PT 11.2 INR 1.0 APTT 26.2 Sodium 140 140 Potassium 3.7 4.1 Chloride 104 108 H Carbon Dioxide 24.8 24.3 Anion Gap 11 8 BUN 16 14 Creatinine 1.0 0.9 Estim Creat Clear Calc 106.7 118.5 eGFR > 60 > 60 BUN/Creatinine Ratio 16 16 Glucose 106 104 Calculated Osmolality 280 279 Calcium 9.9 8.6 Corrected Calcium 9.9 8.6 Magnesium 2.1 Total Bilirubin 0.7 0.8 AST 21 13 ALT 19 13 Alkaline Phosphatase 74 61 Total Protein 8.0 6.4 Albumin 5.0 4.1 D Globulin 3.0 2.3 Albumin/Globulin Ratio 1.7 1.8 Lipase 35 Ur Collection Type Clean Catch Urine Color Yellow Urine Clarity Clear Urine pH 6.5 Ur Specific [place] 1.043 H Urine Protein 2+ A Urine Glucose (UA) Negative Urine Ketones 1+ A Urine Blood 3+ A Urine Nitrite Negative Urine Bilirubin Negative Urine Urobilinogen (Auto) 2.0 Ur Leukocyte Esterase Positive Urine RBC 17 H Urine WBC 11 H Ur Squamous Epith Cells 5 Urine Bacteria None Ur Culture Indicated? Yes Quality Measures Quality Measures none Assessment & Plan Assessment Current Active Medications: Generic Name Dose Route Start Last Admin Trade Name Freq PRN Reason Stop Dose Admin Acetaminophen 650 mg 11/04/24 15:55 Acetaminophen 325 Mg Tablet PO 12/04/24 15:54 Q6H PRN Fever >100.5, inform Hydrocodone Bitart/Acetaminophen 1 tab 11/04/24 15:55 Hydrocodone/Apap 5/325 Tablet PO 11/09/24 15:54 Q6H PRN PAIN SCALE 4-6 (Moderate Sodium Chloride 1,000 mls @ 75 mls/hr 11/04/24 16:00 11/05/24 05:53 Ns IV 11/05/24 15:59 75 mls/hr .[id number] GERMAN Administration Ibuprofen 600 mg 11/04/24 15:55 Ibuprofen Tab 600 Mg Tablet PO 12/04/24 15:54 Q6H PRN PAIN SCALE 1-3 (mild Ketorolac Tromethamine 15 mg 11/05/24 00:16 Ketorolac Inj 30 Mg/Ml Vial IVP 11/06/24 15:59 Q8H PRN PAIN SCALE 1-3 (mild Melatonin 3 mg 11/04/24 21:00 11/04/24 21:38 Melatonin 3 Mg Tablet PO 12/04/24 20:59 3 mg HS GERMAN Administration Morphine Sulfate 2 mg 11/04/24 15:55 Morphine Sulf Inj 10 Mg/Ml Vial IVP 11/09/24 15:54 Q3H PRN PAIN SCALE 7-10 (Severe Ondansetron HCl 4 mg 11/04/24 15:55 Ondansetron Inj 2 Mg/Ml Inj 2 Ml IV 12/04/24 15:54 Q6H PRN NAUSEA OR VOMITING Protocol Pantoprazole Sodium 40 mg 11/04/24 16:00 11/05/24 08:55 Pantoprazole 40 Mg Tablet PO 12/04/24 15:59 40 mg QDAY GERMAN Administration Sennosides 1 tab 11/04/24 16:00 11/05/24 08:55 Senna Tablet PO 12/04/24 15:59 1 tab QDAY GERMAN Administration Protocol Tamsulosin HCl 0.4 mg 11/04/24 16:15 11/05/24 08:55 Tamsulosin Hcl 0.4 Mg Capsule PO 12/04/24 16:14 0.4 mg QDAY GERMAN Administration Plan 39 y/o former smoker M with PMHX of GERD and kidney stones s/p lithotrypsy presented to the ED due to abdominal pain radiating to the groin. Admitted for management of renal calculi. Urology, Dr. Perez consulted. #left hydronephrosis #6 mm distal left ureteral calculus Patient presented with abdominal pain 10/, radiating to the groin patient has poor diet and drinks 6pack of sodas everyday, minimal water intake has hx of stones in the past with lithotrypsy patient was sent from urology, plan to evaluate patient on monday for possible surgical intervention - Hydrocodone prn - ketorolac prn - ibuprofen prn - tamsulosin 0.4mg qday - on half maintainance IV fluids NS - strainer for calculi - Urology, Dr. Perez consulted, appreciate recommendations #GERD - on pantoprazole Case discussed with my senior Dr. Aguirre and my attending Dr. Radha Flores MD PGY-1 Disposition: Medsurg Fluids: NS Feeding: Regular Thrombo prophylaxis: SCDs, JAI 1, no need for chemical prophylaxis Gastric Ulcer prophylaxis: Pantoprazole CODE STATUS: Full code
[2024-11-05 12:00] VITALS: BP 124/82; PULSE 66; RESP 16; TEMP 36.6; O2SAT 96
--- NOTE | 2024-11-05 13:21 | PC.NURSE ---
Dr Perez in to see patient, plan of care and procedure discussed with patient. Procedure intended for tomorrow. Will be NPO after midnight
[2024-11-05 16:00] VITALS: BP 105/69; PULSE 65; RESP 17; TEMP 36.6; O2SAT 97
--- NOTE | 2024-11-05 16:18 | PC.SS ---
SS met with patient regarding his d/c plan. Pt is alert/oriented. Pt was admitted for Renal Calculi. Pt confirmed demographic and contact information is correct on facesheet. Pt resides with and kids. Pt ambulates independently without assistance or DME. Pt is ok with all ADLs. Patient?s pharmacy of choice is [facility] on [address]. Pt named his , Flores Diana medical decision maker if unable. Patient?s choice is to return home upon d/c. Pt does not have an advance directive, SS offered, and pt declined. Pt states not diabetic. Pt states he followed up with PCP in October, D/C plan: Return home Next of Kin: Bebe Diana, , phone# [phone] PCP: Nestor Salas from [facility] on [facility] Address: Correct on facesheet
[2024-11-05] MEDS: HYDROcodone/APAP 5/325 TABLET 1 TAB PO (19:30)
[2024-11-05 20:00] VITALS: BP 135/88; PULSE 83; RESP 20; TEMP 36.6; O2SAT 96
--- NOTE | 2024-11-05 21:48 | ESPR_ITS ---
RE: ZAIRA PEACE : 1985 DATE OF SERVICE: 11/05/2024 The patient is admitted in the hospital through the emergency room. CHIEF COMPLAINT: This patient has history of stone disease in the past. He complains of left-sided flank pain. HISTORY OF PRESENT ILLNESS: This patient has been to the emergency room before. He was sent home on pain medication and tamsulosin 0.4 mg p.o. daily, which he ran out. He came to the office that time his pain was 3/10. The patient elected to be observed since he was not having any urinary problems. No fever, chills, gross hematuria, or dysuria. The patient presented to the emergency room on 11/04/2024. He started having left flank pain, 10/10, radiating to the groin. The patient has poor appetite and he was not drinking enough fluid. He also has some urinary hesitancy. There was no fever, chills, gross hematuria, dysuria, or urinary tract infection. The patient denied headache, chest pain, or shortness of breath. ED COURSE: The patient in the emergency room had high blood pressure 161/92 and he is managed medically for the same. CAT scan had shown mild left hydronephrosis, 6 mm distal left ureteral stone. The patient was given pain medication. PAST MEDICAL HISTORY: GERD, renal calculi. PAST SURGICAL HISTORY: Appendectomy and lithotripsy. FAMILY HISTORY: Diabetes, hypertension. SOCIAL HISTORY: He quit smoking eight years ago. REVIEW OF SYSTEMS: General: Denied fever, chills, or diaphoresis. HEENT: No headache, visual or hearing changes. Neuro: Denies unusual weakness. Cardio: Denies chest pain or palpitation. Pulmonary: No shortness of breath. GI: Abdominal pain. No nausea or vomiting. Musculoskeletal: No muscle pain. PHYSICAL EXAMINATION: General: Condition is satisfactory, orientation x3. HEENT: Normocephalic and atraumatic. Eyes: No anemia or jaundice. Neck: Supple. Trachea is central. Thyroid is not enlarged. Extremities: Reveal no edema, cyanosis, or clubbing. Vital Signs: Stable, they are in HPI, in EMR. Chest: Symmetrical. Heart: Regular rate and rhythm. Abdomen: No masses. Liver, spleen, kidney, not palpable. VARIOUS LABS: WBC is 5.7, serum sodium 140, potassium 3.7, BUN 16, creatinine is 1.0. CAT scan revealed a 6-mm stone distal ureter with mild hydronephrosis. RECOMMENDATIONS: Cysto retrograde ureteroscopy, left laser stone fragmentation, stone basking and stent placement. Procedure and complications of which are discussed with the patient in great detail. Questions were answered to his satisfaction. He verbalized understanding. DT: 16:42:21 TT: 21:46:00 Ref: [id number] - TID: [id number]
[2024-11-05] MEDS: MELATONIN 3 MG TABLET PO (21:55)
[2024-11-05] MEDS: IBUPROFEN TAB 600 MG TABLET PO (21:55)
[2024-11-06] VITALS (12 sets, daily range): BP systolic 110–129; BP diastolic 68–93; PULSE 53–72; RESP 12–23; TEMP 36.1–36.4; O2SAT 95–100
[2024-11-06 06:02] LABS: Basophils % (Auto) 1 % (0-2.5); Eosinophils # (Auto) 0.2 Thou/mm3 (0.0-0.5); Eosinophils % (Auto) 4 % (0-10); Hematocrit 40.3 % (41.0-53.0); Hemoglobin 13.4 g/dL (13.5-16.0); Immature Granulocytes % (Auto) 0 % (0-0); Immature Granulocytes Auto 0.01 Thou/mm3 (0.00-0.00); Lymphocytes # (Auto) 2.2 Thou/mm3 (1.0-4.8); Lymphocytes % (Auto) 44 % (10-50); Mean Corpuscular HGB Conc 33.3 g/dl (31.0-37.0); Mean Corpuscular Hemoglobin 26.4 pg (25.0-35.0); Mean Corpuscular Volume 80 fL (80-100); Monocytes # (Auto) 0.4 Thou/mm3 (0.0-0.8); Monocytes % (Auto) 7 % (0-12); Neutrophils # (Auto) 2.2 Thou/mm3 (1.8-7.7); Neutrophils % (Auto) 44 % (37-80); Nucleated Red Blood Cell % 0 /100 WBC (0); Platelet Count 226 Thou/mm3 (140-440); RDW Standard Deviation 44.3 fL (35.1-43.9); Red Blood Count 5.07 Miln/mm3 (4.50-5.90)
[2024-11-06 06:30] LABS: Alanine Aminotransferase 12 U/L (10-49); Albumin, Serum 4.3 gm/dL (3.5-5.0); Albumin/Globulin Ratio 1.8 (1.2-2.2); Alkaline Phosphatase 60 U/L (46-116); Anion Gap 7 (7-16); Aspartate Amino Transferase 11 U/L (0-34); BUN/Creatinine Ratio 14 Ratio (12-20); Bilirubin,Total 0.6 mg/dL (0.3-1.2); Blood Urea Nitrogen 13 mg/dL (9-23); Carbon Dioxide 26.9 mMol/L (20.0-31.0); Chloride 105 mMol/L (98-107); Creatinine (Component) 0.9 mg/dL (0.6-1.3); Estimated Creatinine Clearance 118.5 mL/min (>60); Globulin 2.4 gm/dL (2.3-3.5); Glucose 109 mg/dL (74-106); Osmolality,Calculated 278 (275-295); Sodium 139 mMol/L (136-145); Total Protein 6.7 gm/dL (5.7-8.2); eGFR > 60 See Note
[2024-11-06] MEDS: SENNA TABLET 1 TAB PO (09:12)
[2024-11-06] MEDS: TAMSULOSIN HCL 0.4 MG CAPSULE PO (09:12)
[2024-11-06] MEDS: PANTOPRAZOLE 40 MG TABLET PO (09:12)
--- NOTE | 2024-11-06 11:21 | PC.SS ---
Follow up note: Waiting for Dr. Morton's recommendation. Pt will return home upon dc.
--- NOTE | 2024-11-06 11:30 | XR_ITS ---
Examination: Left retrograde pyelogram with without KUB AP abdomen 5 spot fluoroscopic views Fluoroscopy Exam date and time: November 06, 2024 1339 hours INDICATIONS: Left flank pain onset November 04, 2024, left hydronephrosis 6 mm distal left ureteral calculus on CT study November 04, 2024, ureteral stone manipulation stent placement today TECHNIQUE AND FINDINGS: 5 spot fluoroscopic images of the abdomen with contrast in dilated left renal calyces Partial visualization left ureteral stent satisfactory position Fluoroscopy 28 seconds radiation dose 9.7 milligray IMPRESSION: Left retrograde pyelogram as above
--- NOTE | 2024-11-06 11:56 | PD.SUROPNT ---
Date of Procedure 11/06/24 Pre Op Diagnosis Left distal ureteral stone 6.5 mm, left hydronephrosis Post Op Diagnosis Urethral stricture, impacted stone left distal ureter almost 6.5 mm to 7 mm with left hydronephrosis Procedure Cystoscopic examination urethral dilation, left semirigid ureteroscopy laser stone fragmentation, stone basketing x 10, retrograde pyelogram, placement of left ureteral stent in a retrograde fashion under fluoroscopic examination Findings Urethral stricture, impacted stone left distal ureter, left hydronephrosis Procedure Description Indication for procedure this is a 39-year-old gentleman he is admitted in the hospital with a left flank pain. He has been to emergency room x 2 with the severe pain 10 out of 10 left flank no nausea vomiting fever chills. Patient had a CAT scan with stone protocol was found to have a stone 6.5 mm almost left distal ureter with a left hydronephrosis patient was recommended above procedure procedure and complications were discussed with patient in great detail informed consent is obtained Patient was brought to the operating room in a satisfactory condition after appropriate premedication was put on the operating table in a supine position he was appropriately identified by surgeon and operating room staff site scope and indication of the procedure were reconfirmed with the patient. General anesthesia was given uneventfully patient was positioned in a dorsal lithotomy position parts were prepped and draped in the usual sterile fashion. 21 Sotelo cystoscope was used to do the cystourethroscopy at this time he received perioperative antibiotics and 20 mg of Lasix IV was administered for prevention of pyelocalyceal infectious complication. He had a urethral stricture dilation with male urethral sounds up to 26 Bruneian was carried out. Next I introduced the scope into the bladder per urethra rest of the urethra did not reveal any stricture prostatic urethra revealed BPH with bilateral lateral lobe prostatic hypertrophy inside of the bladder in all the quadrant was carried out there was no stone diverticula identified both ureteral orifices were visualized. I passed a open-ended Pollick catheter into the left ureteral orifice through the open-ended Pollick catheter I placed a safety wire there was hang up of the wire at the site of the stone I was able to negotiate and bypassed the safety wire into the upper pole calyx at this time his collecting system on the left side decompressed. Urine for culture sensitivity was obtained. Next semirigid ureteroscope was used to do the ureteroscopy after cystoscope was withdrawn gently stone was identified in the distal ureter it was impacted. I took 200 laser fiber and I was able to break the stone into multiple small pieces. With the stone basketing x 10 I was able to remove the stone fragment. Next retrograde pyelogram was performed under fluoroscopic examination no injury to the ureter was identified. Next over the safety wire I was able to place 6 cm long 6 Bruneian double-J stent proximal and curled in the upper pole calyx distal in the bladder. Next #16 Adam catheter was inserted balloon was inflated with 10 cc of water patient after having tolerated the procedure well was sent to recovery room in a satisfactory condition. Patient disposition he can be discharged home tomorrow and he will have a appointment with me in my office in 3 weeks time for removal of the stent Anesthesia GETA Pathology / specimen Other (Ureteral stone, urine for culture sensitivity) Estimated Blood Loss 0.5 Disposition PACU Surgeon Dutch Perez MD Surgical Staff Operation Date: 11/06/24 13:15 <No data on this case meets the specified criteria>
--- NOTE | 2024-11-06 13:05 | SUR.PHASEI ---
pt received from OR in recovery bay 5. pt asleep but responds to voice, breathing unlabored on oxymask 6l, v/s stable. pt has schofield catheter in place. report received from Patrick ROSS and Diana QUINTEROS.
--- NOTE | 2024-11-06 13:38 | SUR.OPER ---
laser fiber 4.21 Time on 1220 Time off 1240 total time 20 min Joules 0.6 HZ 6 Sharma 3.6 Total Kilojoules 0.12
--- NOTE | 2024-11-06 13:50 | SUR.PHASEI ---
pt asleep but responds to voice, breathing unlabored on room air. v/s stable. pt schofield catheter in place. report called to Porsha QUINTEROS. pt will be transferred to room at this time.
[2024-11-06] MEDS: MELATONIN 3 MG TABLET PO (20:59)
[2024-11-07] VITALS: BP 100/69; PULSE 53; RESP 18; TEMP 36.2; O2SAT 94
[2024-11-07 04:00] VITALS: BP 101/67; PULSE 67; RESP 18; TEMP 36.4; O2SAT 95
[2024-11-07 05:22] LABS: Basophils % (Auto) 0 % (0-2.5); Eosinophils # (Auto) 0.1 Thou/mm3 (0.0-0.5); Eosinophils % (Auto) 2 % (0-10); Immature Granulocytes % (Auto) 0 % (0-0); Lymphocytes # (Auto) 1.5 Thou/mm3 (1.0-4.8); Lymphocytes % (Auto) 20 % (10-50); Mean Corpuscular HGB Conc 33.3 g/dl (31.0-37.0); Mean Corpuscular Hemoglobin 26.4 pg (25.0-35.0); Mean Corpuscular Volume 79 fL (80-100); Monocytes # (Auto) 0.5 Thou/mm3 (0.0-0.8); Monocytes % (Auto) 6 % (0-12); Neutrophils # (Auto) 5.4 Thou/mm3 (1.8-7.7); Neutrophils % (Auto) 72 % (37-80); Nucleated Red Blood Cell % 0 /100 WBC (0); Platelet Count 212 Thou/mm3 (140-440); RDW Standard Deviation 43.8 fL (35.1-43.9); Red Blood Count 4.92 Miln/mm3 (4.50-5.90); White Blood Count 7.5 Thou/mm3 (3.8-10.6)
[2024-11-07 07:04] LABS: Alanine Aminotransferase 9 U/L (10-49); Albumin, Serum 3.9 gm/dL (3.5-5.0); Albumin/Globulin Ratio 1.5 (1.2-2.2); Alkaline Phosphatase 58 U/L (46-116); Anion Gap 11 (7-16); Aspartate Amino Transferase 13 U/L (0-34); BUN/Creatinine Ratio 18 Ratio (12-20); Bilirubin,Total 0.6 mg/dL (0.3-1.2); Blood Urea Nitrogen 14 mg/dL (9-23); Calcium 9.4 mg/dL (8.3-10.6); Calcium (Corrected) 9.5 mg/dL (8.5-10.1); Carbon Dioxide 24.1 mMol/L (20.0-31.0); Chloride 104 mMol/L (98-107); Creatinine (Component) 0.8 mg/dL (0.6-1.3); Estimated Creatinine Clearance 133.3 mL/min (>60); Globulin 2.6 gm/dL (2.3-3.5); Glucose 97 mg/dL (74-106); Osmolality,Calculated 278 (275-295); Potassium 3.8 mMol/L (3.4-5.1); Sodium 139 mMol/L (136-145); Total Protein 6.5 gm/dL (5.7-8.2); eGFR > 60 See Note
[2024-11-07 07:42] VITALS: BP 116/78; PULSE 88; RESP 18; TEMP 36.4; O2SAT 95
--- NOTE | 2024-11-07 07:43 | ESPR_ITS ---
Documentation for date of: 11/06/24 Subjective Subjective Interval history: Patient seen today at the bedside found awake, alert, oriented x3. No overnight events reported. States no active complaints, and that pain on admission has resolved without the use of pain medications. Vital signs stable at this time. Labs unremarkable. Pending Urology procedure today. will follow up post-op Exam Vital Signs Temp Pulse Resp BP Pulse Ox O2 Del Method O2 Flow Rate 97.6 F 67 18 101/67 95 Room Air 2 11/07/24 04:00 11/07/24 04:00 11/07/24 04:00 11/07/24 04:00 11/07/24 04:00 11/07/24 04:00 11/06/24 13:20 Narrative Exam Physical Exam GENERAL: NAD, NC/AT, responsive/cooperative. A&Ox3 HEENT: Moist mucosa. Eyes open, symmetrical, & clear CARDIO: No chest pain on palpation. Heart RRR, no obvious murmurs PULM: No noted coughing/dyspnea. Lungs CTA B/L, no R/W/R GI: abdomen soft, nondistended, pain on palpation of left abdomen radiating to the groin SKIN/MSK/EXT: No wounds/rashes/edema/amputations, no pain on palpation. Pedal pulses present B/L NEURO: AAOX3, no focal neuro deficits, able to move all 4 extremities Objective Labs 11/07/24 04:48 11/07/24 04:48 Labs: Laboratory Results - last 24 hr 11/07/24 04:48 WBC 7.5 D RBC 4.92 Hgb 13.0 L Hct 39.0 L MCV 79 L MCH 26.4 MCHC 33.3 RDW Std Deviation 43.8 Plt Count 212 Neut % (Auto) 72 Lymph % (Auto) 20 [place] % (Auto) 6 Eos % (Auto) 2 Baso % (Auto) 0 Neut # (Auto) 5.4 Lymph # (Auto) 1.5 [place] # (Auto) 0.5 Eos # (Auto) 0.1 Baso # (Auto) 0.0 Immature Gran # (Auto) 0.00 Absolute Nucleated RBC 0.00 Immature Gran % 0 Nucleated RBC % 0 Sodium 139 Potassium 3.8 Chloride 104 Carbon Dioxide 24.1 Anion Gap 11 BUN 14 Creatinine 0.8 Estim Creat Clear Calc 133.3 eGFR > 60 BUN/Creatinine Ratio 18 Glucose 97 Calculated Osmolality 278 Calcium 9.4 Corrected Calcium 9.5 Total Bilirubin 0.6 AST 13 ALT 9 L Alkaline Phosphatase 58 Total Protein 6.5 Albumin 3.9 Globulin 2.6 Albumin/Globulin Ratio 1.5 Quality Measures Quality Measures none Assessment & Plan Assessment Current Active Medications: Generic Name Dose Route Start Last Admin Trade Name Freq PRN Reason Stop Dose Admin Acetaminophen 650 mg 11/04/24 15:55 Acetaminophen 325 Mg Tablet PO 12/04/24 15:54 Q6H PRN Fever >100.5, inform Hydrocodone Bitart/Acetaminophen 1 tab 11/04/24 15:55 11/05/24 19:30 Hydrocodone/Apap 5/325 Tablet PO 11/09/24 15:54 1 tab Q6H PRN Administration PAIN SCALE 4-6 (Moderate Ibuprofen 600 mg 11/04/24 15:55 11/05/24 21:55 Ibuprofen Tab 600 Mg Tablet PO 12/04/24 15:54 600 mg Q6H PRN Administration PAIN SCALE 1-3 (mild Melatonin 3 mg 11/04/24 21:00 11/06/24 20:59 Melatonin 3 Mg Tablet PO 12/04/24 20:59 3 mg HS GERMAN Administration Morphine Sulfate 2 mg 11/04/24 15:55 Morphine Sulf Inj 10 Mg/Ml Vial IVP 11/09/24 15:54 Q3H PRN PAIN SCALE 7-10 (Severe Ondansetron HCl 4 mg 11/04/24 15:55 Ondansetron Inj 2 Mg/Ml Inj 2 Ml IV 12/04/24 15:54 Q6H PRN NAUSEA OR VOMITING Protocol Pantoprazole Sodium 40 mg 11/04/24 16:00 11/06/24 09:12 Pantoprazole 40 Mg Tablet PO 12/04/24 15:59 40 mg QDAY GERMAN Administration Sennosides 1 tab 11/04/24 16:00 11/06/24 09:12 Senna Tablet PO 12/04/24 15:59 1 tab QDAY GERMAN Administration Protocol Tamsulosin HCl 0.4 mg 11/04/24 16:15 11/06/24 09:12 Tamsulosin Hcl 0.4 Mg Capsule PO 12/04/24 16:14 0.4 mg QDAY GERMAN Administration Plan 39 y/o former smoker M with PMHX of GERD and kidney stones s/p lithotrypsy presented to the ED due to abdominal pain radiating to the groin. Admitted for management of renal calculi. Urology, Dr. Perez consulted. #left hydronephrosis #6 mm distal left ureteral calculus Patient presented with abdominal pain /, radiating to the groin patient has poor diet and drinks 6pack of sodas everyday, minimal water intake has hx of stones in the past with lithotrypsy patient was sent from urology, plan to evaluate patient on monday for possible surgical intervention - Hydrocodone prn - ketorolac prn - ibuprofen prn - tamsulosin 0.4mg qday - strainer for calculi - Pending urological procedure today - Urology, Dr. Perez consulted, appreciate recommendations #GERD - on pantoprazole Case discussed with my senior Dr. Rodriguez PGY-[address] Santiago Flores MD PGY-1 Disposition: Medsurg, anticipate discharge in next 24 hours Fluids: NS Feeding: Regular Thrombo prophylaxis: SCDs, JAI 1, no need for chemical prophylaxis Gastric Ulcer prophylaxis: Pantoprazole CODE STATUS: Full code Senior resident attestation: Patient evaluated and examined at the bedside, plan of care discussed with rest of the team including my attending physician, except as noted. The patient presented with 6 mm distal left ureteral calculus, and left hydronephrosis, s/p cystoscopy and left ureteral stent placement. Stable vitals postop, urine culture from 11/04 did not show any growth. Urology recommended patient can be discharged tomorrow and followed up outpatient with Dr. Perez at his urology clinic for removal of stent in 3 weeks. Michael PGY2 Attending Provider Attestation/Addendum I have examined the patient, reviewed labs and imaging findings, discussed the case with the resident(s), and reviewed entered orders. I agree with the plan of care as outlined in this note, with these additional summaries/recommendations: Patient seen at bedside. No acute overnight events. Patient was admitted for urolithiasis with mild unilateral hydronephrosis. Urology was consulted and patient was taken for cystoscopic examination with urethral dilation, laser stone fragmentation, stone basketing, stent placement and retropyelogram. Patient tolerated the procedure well. Resume diet and continue home medications. As needed pain management with IV morphine and oral [place]. Repeat hematology and chemistry panel in AM. If patient continues to improve then anticipate discharge in the next [address] Henderson
[2024-11-07] MEDS: TAMSULOSIN HCL 0.4 MG CAPSULE PO (08:41)
[2024-11-07] MEDS: SENNA TABLET 1 TAB PO (08:41)
[2024-11-07] MEDS: PANTOPRAZOLE 40 MG TABLET PO (08:41)
--- NOTE | 2024-11-07 09:57 | PD.RESDS ---
Planned Discharge Date 11/07/24 DS: Providers Provider Date of admission: 11/04/24 15:55 Primary care physician: Conner Salas PA-C Admitting Provider: Karthik Garcia MD Attending Provider on Admission: Chalo Henderson MD Consults: 11/04/24 15:29 Consult to Urology Stat Comment: Obstructive uropathy Consulting Provider: Dutch Perez 11/04/24 16:09 Consult to Urology Stat Comment: renal calculi Consulting Provider: Dutch Perez Attending Provider on DC: Dr Santiago MD Discharging Provider: Wily Flores MD DS: Diagnosis Problem List Completed Was Problem List Reviewed/Reconciled?: Yes Hospital Course Hospital Course Hospital course: 39 y/o former smoker M with PMHx of Kidney stones s/p lithothrypsy, GERD was sent to the ED by Urology Dr. Perez, as patient was complaining of 10/10 abdominal pain radiating to the groin. Patient has been having achy, stabbing pain in the left flank since 15 days ago but last night the pain began to worsen. Patient had a surgery pending with Urology, however patient started developing immense pain since last night and was told to come to the ED. Patient was admitted for Urologic work up. During hospital stay patient was hydrated, pain medications were ordered for pain control. Patient was evaluated by Urology service and patient underwent Cystoscopic examination urethral dilation, left semirigid ureteroscopy laser stone fragmentation, stone basketing x 10, retrograde pyelogram, placement of left ureteral stent in a retrograde fashion under fluoroscopic examination, with findings of Urethral stricture, impacted stone left distal ureter, left hydronephrosis. Patient at this time is medically stable for discharge. Problem List: #left hydronephrosis s/p ureteroscopy and stone fragmantation #6 mm distal left ureteral calculus #GERD Case discussed with my senior Dr. Rodriguez PGY-[address] Santiago Flores MD PGY-1 Senior resident attestation: Patient evaluated and examined at the bedside, plan of care discussed with rest of the team including my attending physician, except as noted. Patient instructed to follow up with Dr. Perez, Urology within 3 weeks of hospital discharge for results of stone analysis and stent removal. You may have to call his office to schedule an appointment. Please follow-up with your primary care physician within 1 week of discharge from hospital. Recommend taking [id number] Tylenol for pain relief. In case of worsening symptoms, please return to the emergency room. Quresh PGY2 Status at Discharge Functional status at discharge: independent ambulation Overall status at discharge: patient is back to baseline Time Spent with Patient Time attestation: Total time spent providing and/or coordinating discharge services: Time spent: Greater than 30 minutes Exam Vital Signs Temp Pulse Resp BP Pulse Ox O2 Del Method O2 Flow Rate 97.5 F 88 18 116/78 95 Room Air 2 11/07/24 07:42 11/07/24 07:42 11/07/24 07:42 11/07/24 07:42 11/07/24 07:42 11/07/24 07:42 11/06/24 13:20 Narrative Exam Physical Exam GENERAL: NAD, NC/AT, responsive/cooperative. A&Ox3 HEENT: Moist mucosa. Eyes open, symmetrical, & clear CARDIO: No chest pain on palpation. Heart RRR, no obvious murmurs PULM: No noted coughing/dyspnea. Lungs CTA B/L, no R/W/R GI: abdomen soft, nondistended, pain on palpation of left abdomen radiating to the groin SKIN/MSK/EXT: No wounds/rashes/edema/amputations, no pain on palpation. Pedal pulses present B/L NEURO: AAOX3, no focal neuro deficits, able to move all 4 extremities Discharge Plan Plan Patient Disposition: HOME (Self Care) Disposition Comment: Stable for admit Patient condition on transfer: Stable Care Plan Goals: Per urology instructions, please follow-up outpatient with Dr. Perez at his urology clinic for removal of stent in 3 weeks. You may have to call his office to schedule an appointment. Please follow-up with your primary care physician within 1 week of discharge from hospital. Recommend taking [id number] Tylenol for pain relief. In case of worsening symptoms, please return to the emergency room. Prescriptions/Referrals Prescriptions/Med Rec: Continued famotidine [Pepcid] 40 mg tablet 40 mg PO QDAY Qty: 30 0RF tamsulosin [Flomax] 0.4 mg capsule 0.4 mg PO QDAY Qty: 14 0RF ibuprofen 800 mg tablet 800 mg PO Q6H PRN (Reason: pain) Qty: 10 0RF Referrals: Conner Salas PA-C [Primary Care Provider] - Patient/Caregiver Discharge Instructions Education Materials: Having a Ureteral Stent Print Language: French Stand Alone Forms: Nery Award Info., Patient Portal Info Letter Discharge Order Discharge Orders: Discharge (Routine); Ordered 11/07/24 Ordered By: Wily Flores Quality Discharge Quality Measures VTE prophylaxis Attestestation MD Attestation I have examined the patient, reviewed labs and imaging findings, discussed the case with the resident(s), and reviewed entered orders. I agree with the plan of care as outlined in this note. Dr. Henderson
[2024-11-07] MEDS: HYDROcodone/APAP 5/325 TABLET 1 TAB PO (11:47)
[2024-11-07 12:00] VITALS: BP 132/90; PULSE 89; RESP 18; TEMP 36.4; O2SAT 95
[2024-11-15 17:48] LABS: Stone Analysis Source NOT GIVEN
[2024-11-18 06:23] LABS: Stone Analysis Weight 0.001 g
== END 2024-11-07 13:21 | disposition home or self-care (01) | DRG 446 ==
LOC: SERX 16:04 → SERHOLD 16:45 → S3SX 20:13
PROVIDERS: Nurse Practitioner Primary Care; Student in an Organized Health Care Education/Training Program; Urology; Admitting Provider Internal Medicine; Emergency Provider Emergency Medicine; PCP Physician Assistant; Visit Provider Student in an Organized Health Care Education/Training Program
PROC: 0TJB8ZZ Inspection of Bladder, Via Natural or Artificial Opening Endoscopic (ICD-10-PCS; CPT 52000; principal; 2024-11-06 13:00)
DX: N13.2 Hydronephrosis with renal and ureteral calculous obstruction (principal); N35.919 Unspecified urethral stricture, male, unspecified site; K21.9 Gastro-esophageal reflux disease without esophagitis; Z87.442 Personal history of urinary calculi; Z87.891 Personal history of nicotine dependence; Z79.899 Other long term (current) drug therapy
CPT/HCPCS: 36415; 74176; 76000; 80053; 81001; 82365; 83690; 83735; 85025; 85610; 85730; 87086; 96372; 96374; 99285; A4217; A4649; C1769; C1889; C1894; C2617; J0131; J1580; J1885; J1940; J2250; J2270; J2371; J2405; J2704; J3010; J3490; J7030; Q0162; A9270

== ENCOUNTER 2024-11-18 11:07 | Emergency (ER) | payer MEDICAID, SELFPAY ==
[2024-11-18 11:08] VITALS: BMI 30.5
[2024-11-18 11:24] VITALS: BP 133/99; PULSE 89; RESP 18; TEMP 36.6; O2SAT 95
--- NOTE | 2024-11-18 11:28 | XR_ITS ---
Examination: CT abdomen and pelvis without contrast. Coronal 3-D reconstructions. Sagittal 2-D reconstructions. Date and time of exam:November 18, 2024 1137 hours Comparison November 04, 2024 INDICATIONS: Left-sided flank pain today, history kidney stones, mild left hydronephrosis 6 mm distal left ureteral calculus on CT abdomen November 04, 2024 CTDI: vol (mGy): 9.58 DLP: (mGycm): 941 Technique: Axial images of the abdomen have been obtained, 3 mm slice thickness Intravenous contrast material has not been administered. Low dose protocols were performed. One or more of the following dose reduction techniques were used; automated exposure control, adjustment of the mA and/or KV according to patient size, use of iterative reconstruction technique. Findings: No focal liver or splenic lesion No gallstones No pancreatic or adrenal mass Left ureteral stent satisfactory position 6 mm calculus lower pole left kidney Mild left hydronephrosis No right hydronephrosis No bowel obstruction Absent appendix IMPRESSION: Left ureteral stent satisfactory position, mild left hydronephrosis 6 mm calculus lower pole left kidney
--- NOTE | 2024-11-18 11:28 | PD.EDRME ---
Rapid Medical Screening Exam RME Arrival date/time: 11/18/24 11:07 39-year-old male presents emergency department complaints of abdominal pain patient had recent stent placement for kidney stone patient reports hematuria and pain Chief Complaint: Abdominal Pain Vital signs: Vital Signs Temperature 98 F 11/18/24 11:24 Pulse Rate 89 11/18/24 11:24 Respiratory Rate 18 11/18/24 11:24 Blood Pressure 133/99 H 11/18/24 11:24 Pulse Oximetry (%) 95 11/18/24 11:24 Oxygen Delivery Method Room Air 11/18/24 11:24
[2024-11-18 12:02] LABS: Basophils % (Auto) 1 % (0-2.5); Eosinophils # (Auto) 0.2 Thou/mm3 (0.0-0.5); Eosinophils % (Auto) 3 % (0-10); Hematocrit 44.4 % (41.0-53.0); Hemoglobin 14.7 g/dL (13.5-16.0); Immature Granulocytes % (Auto) 0 % (0-0); Immature Granulocytes Auto 0.01 Thou/mm3 (0.00-0.00); Lymphocytes # (Auto) 1.6 Thou/mm3 (1.0-4.8); Lymphocytes % (Auto) 22 % (10-50); Mean Corpuscular HGB Conc 33.1 g/dl (31.0-37.0); Mean Corpuscular Hemoglobin 26.4 pg (25.0-35.0); Mean Corpuscular Volume 80 fL (80-100); Monocytes # (Auto) 0.4 Thou/mm3 (0.0-0.8); Monocytes % (Auto) 5 % (0-12); Neutrophils # (Auto) 5.1 Thou/mm3 (1.8-7.7); Neutrophils % (Auto) 70 % (37-80); Nucleated Red Blood Cell % 0 /100 WBC (0); Platelet Count 244 Thou/mm3 (140-440); RDW Standard Deviation 43.1 fL (35.1-43.9); Red Blood Count 5.57 Miln/mm3 (4.50-5.90); White Blood Count 7.3 Thou/mm3 (3.8-10.6)
[2024-11-18 12:17] LABS: Alanine Aminotransferase 21 U/L (10-49); Albumin/Globulin Ratio 1.7 (1.2-2.2); Alkaline Phosphatase 75 U/L (46-116); Anion Gap 10 (7-16); Aspartate Amino Transferase 14 U/L (0-34); BUN/Creatinine Ratio 14 Ratio (12-20); Bilirubin,Total 0.5 mg/dL (0.3-1.2); Blood Urea Nitrogen 11 mg/dL (9-23); Calcium 9.4 mg/dL (8.3-10.6); Calcium (Corrected) 9.4 mg/dL (8.5-10.1); Carbon Dioxide 27.2 mMol/L (20.0-31.0); Chloride 104 mMol/L (98-107); Creatinine (Component) 0.8 mg/dL (0.6-1.3); Estimated Creatinine Clearance 134.2 mL/min (>60); Globulin 2.9 gm/dL (2.3-3.5); Glucose 102 mg/dL (74-106); Lipase 29 U/L (12-53); Osmolality,Calculated 280 (275-295); Potassium 4.2 mMol/L (3.4-5.1); Sodium 141 mMol/L (136-145); Total Protein 7.9 gm/dL (5.7-8.2); eGFR > 60 See Note
[2024-11-18 12:50] LABS: Collection Type, Urine Clean Catch; Squamous Epithelial Cell,Urine 0 /hpf (0-5)
[2024-11-18 13:33] LABS: Bilirubin,Urine Negative (Negative); Blood,Urine 3+ (Negative); Glucose, Urine Negative (Negative); Ketones,Urine Negative (Negative); Leukocyte Esterase,Urine Positive (Negative); Nitrite,Urine Negative (Negative); Protein,Urine 2+ (Neg - Trace); RBC,Urine 8189 /hpf (0-3); Specific Gravity,Urine 1.024 (1.001-1.035); Transitional Epi Cells,Urine 3 /hpf (0-5); Urobilinogen,Urine Negative mg/dL (0.0-1.0); WBC,Urine 46 /hpf (0-5)
[2024-11-18 13:42] LABS: Clarity,Urine Turbid (Clear/Hazy); Culture Indicated,Urine Yes
[2024-11-18 13:44] LABS: Color,Urine Drk-Brown (Lt Yel-Yel)
[2024-11-18 16:10] VITALS: BP 126/98; PULSE 80; RESP 16; TEMP 36.7; O2SAT 100
--- NOTE | 2024-11-18 16:51 | EDNOTE_ITS ---
ED General RME/HPI General Chief complaint: Abdominal Pain Stated complaint: SENT BY [facility], RECENT SURGERY Arrival date/time: 11/18/24 11:07 RME / HPI RME / HPI narrative: 11/18/24 11:07 RME: 39-year-old male presents emergency department complaints of abdominal pain patient had recent stent placement for kidney stone patient reports hematuria and pain KUAH HPI: 39-year-old male with a history of renal stones who had a left ureteral stent placed 2 weeks ago who presents to the emergency department for persistent hematuria since placement. He is also has persistent pain. After the procedure he was not discharged with any pain medicines and has had the same pain since. He does not have a follow-up appointment till 26 November therefore his primary care provider sent him to the emergency department for assessment. Related Data Previous Rx's ?Medication ?Instructions ?Recorded famotidine 40 mg tablet (Pepcid) 40 mg PO QDAY #30 tabs 02/29/20 ibuprofen 800 mg tablet 800 mg PO Q6H PRN pain #10 tabs 10/20/24 tamsulosin 0.4 mg capsule (Flomax) 0.4 mg PO QDAY #14 caps 10/20/24 hydrocodone 5 mg-acetaminophen 325 1 tab PO Q8H PRN pain #10 tabs 11/18/24 mg tablet Allergies Allergy/AdvReac Type Severity Reaction Status Date / Time No Known Allergies Allergy Verified 11/18/24 11:08 Review of Systems Review of Systems Systems Reviewed: All systems reviewed, normal except as documented ED Exam Narrative Physical exam: GENERAL APPEARANCE: AxOx4, generally well-appearing, no acute distress. HEENT: NC, AT. MMM. EOMI, clear conjunctiva, oropharynx clear. NECK: Supple without lymphadenopathy. No stiffness or restricted ROM. HEART: Normal rate and regular rhythm, normal S1/S1, no m/r/g LUNGS: CTAB, moving air well. No crackles or wheezes are heard. ABDOMEN: Soft, nontender, nondistended with good bowel sounds heard. BACK: No midline C/T/L spine pain or deformity, No CVAT, no obvious deformity. EXTREMITIES: Without cyanosis, clubbing or edema. MUSCULOSKELETAL: FROM of all major joints, no chest tenderness NEUROLOGICAL: Grossly nonfocal. Alert and oriented, moving all 4 extremities. CN not formally tested but appear grossly intact. Observed to ambulate with normal gait. Skin: Warm and dry without any rash. Course Quality Measures none Orders Category Date Time Status CT abdomen pelvis wo con Stat Exams 11/18/24 11:28 Completed CBC Stat Lab 11/18/24 11:51 Completed Comprehensive Metabolic Panel Stat Lab 11/18/24 11:51 Completed Lipase Stat Lab 11/18/24 11:51 Completed UA, C/S IF [Urinalysis, C/S if Indicated] Stat Lab 11/18/24 12:36 Completed Urine Culture Stat Lab 11/18/24 12:36 Received HYDROcodone*/APAP 5/325 [Ariton 5/325] Med 11/18/24 16:49 Discontinued 1 tab PO X1 ONE Vital Signs Vital signs: Vital Signs Temperature 98 F 11/18/24 11:24 Pulse Rate 89 11/18/24 11:24 Respiratory Rate 18 11/18/24 11:24 Blood Pressure 133/99 H 11/18/24 11:24 Pulse Oximetry (%) 95 11/18/24 11:24 Oxygen Delivery Method Room Air 11/18/24 11:24 SpO2 95% on RA, not hypoxic MDM Patient data External records reviewed:: [facility] previous records Clinical information provided by:: patient Social determinants that could affect healthcare access:: none Patient has the following chronic illnesses:: None How is presenting disease/condition affected by chronic disease/condition?: no chronic disease Evaluation data The following diagnostics were reviewed and interpreted by me:: lab results and radiology exam(s) Lab and/or radiology exams considered but not ordered:: None Interpretation Summary: As per narrative Medications Medications considered but not ordered:: None Medication administrations:: Medication Administration History Discontinued Medications Hydrocodone Bitart/Acetaminophen (Hydrocodone/Apap 5/325 Tablet) 1 tab PO X1 ONE Stop: 11/18/24 16:50 Above Consultations Consultation(s) initiated? (list below): No Diagnosis Differential Diagnosis ED Complaint MDM: Renal colic, stent malfunction UTI, pyelonephritis, Most likely diagnosis given after review of the tests above:: See below Admission Indicated Admission indicated?: not indicated Explain why admission is indicated or not indicated:: As per narrative Admission Request Was there a request for admission?: No Disposition Plan Disposition Plan: Discharge Discharge Attestation Discharge Attestation: The patient and all family members were given an opportunity to ask questions and understood the discharge instructions. Discharge instructions specifically effects, indications for sooner follow up or return to the emergency department, and the expected course of current diagnosis. Patient condition: Stable Medical Decision Making MDM Narrative MDM Narrative: Mr. Diana is a clinically well-appearing gentleman who had a recent left ureteral stent placed to due to obstructive uropathy secondary to ureteral lithiasis. He has had persistent dysuria/tea colored urine since the emergency department. He has also had persistent flank pain of which she was not prescribed pain medicine portions of surgery worsening. Given he is still at the status he contact his primary care doctor the presents emergency department. Overall presentation is consistent with recent stent placement and I an educated the patient on expectations post) and plans with his follow-up on the seventh of next month. Laboratory testing and CT was sent via the E process shows no acute findings significant for normal hemoglobin. On the CT the stent appears to be in normal positioning. Urinalysis is significant for moderate microscopic blood without signs of infection. As he is otherwise well- appearing, vital signs are stable, no acute abnormalities on laboratory testing is appropriate for continued outpatient follow-up with his urologist on . We will treat scribing short course of narcotics for pain management. Differential Diagnosis Differential Diagnosis: Renal colic, stent malfunction UTI, pyelonephritis, Lab Data 11/18/24 11:51 11/18/24 11:51 Labs: Lab Results 11/18/24 11/18/24 Range/Units 11:51 12:36 WBC 7.3 (3.8-10.6) Thou/mm3 RBC 5.57 (4.50-5.90) Miln/mm3 Hgb 14.7 (13.5-16.0) g/dL Hct 44.4 (41.0-53.0) % MCV 80 (80-100) fL MCH 26.4 (25.0-35.0) pg MCHC 33.1 (31.0-37.0) g/dl RDW Std Deviation 43.1 (35.1-43.9) fL Plt Count 244 D (140-440) Thou/mm3 Neut % (Auto) 70 (37-80) % Lymph % (Auto) 22 (10-50) % [place] % (Auto) 5 (0-12) % Eos % (Auto) 3 (0-10) % Baso % (Auto) 1 (0-2.5) % Neut # (Auto) 5.1 (1.8-7.7) Thou/mm3 Lymph # (Auto) 1.6 (1.0-4.8) Thou/mm3 [place] # (Auto) 0.4 (0.0-0.8) Thou/mm3 Eos # (Auto) 0.2 (0.0-0.5) Thou/mm3 Baso # (Auto) 0.0 (0.0-0.2) Thou/mm3 Immature Gran # (Auto) 0.01 H (0.00-0.00) Thou/mm3 Absolute Nucleated RBC 0.00 (0.00-0.00) Thou/mm3 Immature Gran % 0 (0-0) % Nucleated RBC % 0 (0) /100 WBC Sodium 141 (136-145) mMol/L Potassium 4.2 (3.4-5.1) mMol/L Chloride 104 (98-107) mMol/L Carbon Dioxide 27.2 (20.0-31.0) mMol/L Anion Gap 10 (7-16) BUN 11 (9-23) mg/dL Creatinine 0.8 (0.6-1.3) mg/dL Estim Creat Clear Calc 134.2 (>60) mL/min eGFR > 60 (60 - ) See Note BUN/Creatinine Ratio 14 (12-20) Ratio Glucose 102 (74-106) mg/dL Calculated Osmolality 280 (275-295) Calcium 9.4 (8.3-10.6) mg/dL Corrected Calcium 9.4 (8.5-10.1) mg/dL Total Bilirubin 0.5 (0.3-1.2) mg/dL AST 14 (0-34) U/L ALT 21 (10-49) U/L Alkaline Phosphatase 75 (46-116) U/L Total Protein 7.9 (5.7-8.2) gm/dL Albumin 5.0 (3.5-5.0) gm/dL Globulin 2.9 (2.3-3.5) gm/dL Albumin/Globulin Ratio 1.7 (1.2-2.2) Lipase 29 (12-53) U/L Ur Collection Type Clean Catch Urine Color Drk-Brown A (Lt Yel-Yel) Urine Clarity Turbid A (Clear/Hazy) Urine pH 6.0 (5.0-7.0) Ur Specific [place] 1.024 (1.001-1.035) Urine Protein 2+ A (Neg - Trace) Urine Glucose (UA) Negative (Negative) Urine Ketones Negative (Negative) Urine Blood 3+ A (Negative) Urine Nitrite Negative (Negative) Urine Bilirubin Negative (Negative) Urine Urobilinogen (Auto) Negative (0.0-1.0) mg/dL Ur Leukocyte Esterase Positive (Negative) Urine RBC 8189 H (0-3) /hpf Urine WBC 46 H (0-5) /hpf Ur Squamous Epith Cells 0 (0-5) /hpf Ur Transition Epith Cell 3 (0-5) /hpf Urine Bacteria None (None) Ur Culture Indicated? Yes Discharge Plan Plan Patient Disposition: HOME (Self Care) Prescriptions/Referrals Prescriptions/Med Rec: New hydrocodone-acetaminophen 5-325 mg tablet 1 tab PO Q8H MDD 3 tabs/day PRN (Reason: pain) Qty: 10 0RF No Action famotidine [Pepcid] 40 mg tablet 40 mg PO QDAY Qty: 30 0RF tamsulosin [Flomax] 0.4 mg capsule 0.4 mg PO QDAY Qty: 14 0RF ibuprofen 800 mg tablet 800 mg PO Q6H PRN (Reason: pain) Qty: 10 0RF Referrals: Wili Flores MD [Primary Care Provider] - In 1 week Problem List Clinical Impression: Ureterolithiasis Patient/Caregiver Discharge Instructions Education Materials: ED Kidney Stone w/ Colic, Having a Ureteral Stent Additional Instructions: Programe martina ham de seguimiento con urolog?a el . Puede regresar al departamento de emergencias antes si los s?ntomas empeoran o si nota alg?n problema nuevo que le preocupe. Print Language: Bulgarian Stand Alone Forms: Nery Award Info., Patient Portal Info Letter
[2024-11-18] MEDS: HYDROcodone/APAP 5/325 TABLET 1 TAB PO (17:10)
[2024-11-18] MEDS: KETOROLAC INJ 60 MG/2 ML VIAL 30 MG IM (17:11)
[2024-11-18 17:16] VITALS: BP 114/90; PULSE 88; RESP 16; TEMP 36.6; O2SAT 99
== END 2024-11-18 17:16 | disposition home or self-care (01) ==
PROVIDERS: Nurse Practitioner Primary Care; Emergency Provider Emergency Medicine; PCP Family Medicine
DX: N20.1 Calculus of ureter (principal)
CPT/HCPCS: 36415; 74176; 80053; 81001; 83690; 85025; 87086; 96372; 99284; J1885; A9270

== ENCOUNTER 2024-11-20 14:45 | Emergency (ER) | payer MEDICAID, SELFPAY ==
[2024-11-20 14:45] VITALS: BMI 30.5
[2024-11-20 15:05] VITALS: BP 137/84; PULSE 77; RESP 18; TEMP 36.5; O2SAT 96
--- NOTE | 2024-11-20 15:20 | EDNOTE_ITS ---
<Statement entered by Riddhi Larios MD - 11/22/24 06:47> As co-signing physician, I was present and available for consult prn. I concur with the plan and care as documented by the midlevel provider. ED Male Genitalurinary RME/HPI General Chief complaint: Urogenital-Male Stated complaint: BUMP UNDER SCROTUM x 1 MONTH Time Seen by Provider: 11/20/24 14:53 Arrival date/time: 11/20/24 14:45 39-year-old male presents emergency department today complaints of bump under scrotum x 1 month patient reports no fever nausea or vomiting patient does report recent renal stent placement Limitations: no limitations Related Data Previous Rx's ?Medication ?Instructions ?Recorded famotidine 40 mg tablet (Pepcid) 40 mg PO QDAY #30 tabs 02/29/20 ibuprofen 800 mg tablet 800 mg PO Q6H PRN pain #10 tabs 10/20/24 tamsulosin 0.4 mg capsule (Flomax) 0.4 mg PO QDAY #14 caps 10/20/24 hydrocodone 5 mg-acetaminophen 325 1 tab PO Q8H PRN pain #10 tabs 11/18/24 mg tablet clindamycin HCl 150 mg capsule 450 mg (3 x 150 mg) PO TID 7 days 11/20/24 #63 caps Allergies Allergy/AdvReac Type Severity Reaction Status Date / Time No Known Allergies Allergy Verified 11/20/24 14:47 Review of Systems Review of Systems Systems Reviewed: All systems reviewed, normal except as documented Constitutional Constitutional: Reports system reviewed and no additional complaints, except as documented, Denies fever(s) and Denies headache(s) Eyes Eyes: Reports system reviewed and no additional complaints, except as documented and Denies blurry vision ENT Ears, Nose, Mouth, and Throat: Reports system reviewed and no additional complaints, except as documented, Denies headache(s), Denies nasal congestion and Denies nasal discharge Cardiovascular Cardiovascular: Reports system reviewed and no additional complaints, except as documented, Denies chest pain and Denies dyspnea Respiratory Respiratory: Reports system reviewed and no additional complaints, except as documented, Denies chest congestion, Denies cough and Denies dyspnea Gastrointestinal Gastrointestinal: Reports system reviewed and no additional complaints, except as documented and Denies abdominal pain Integumentary/Breasts Skin/Breast: Reports system reviewed and no additional complaints, except as documented, Denies rash and Reports other (Mild swelling perianal region) Neurologic Neurologic: Reports system reviewed and no additional complaints, except as documented, Reports as per HPI and Denies headache(s) Past Medical History Past Medical History NEUROLOGIC: Negative Neurological Disorders or Seizures CARDIAC: Negative Cardiac Disorders or Congestive Heart Failure RESPIRATORY: Negative Chronic Obstructive Pulmonary Disease (COPD) GASTROINTESTINAL: Positive Gastrointestinal Disorders and Gastroesophageal Reflux Disease GENITOURINARY: Positive Genitourinary Disorders and Kidney Stones (Ureteral stent on left placed on 11/06/2024); Negative Renal Disease MUSCULOSKELETAL: Negative Musculoskeletal Disorders ENDOCRINE: Negative Endocrine Disorders, Diabetes Mellitus Type 1 or Diabetes Mellitus Type 2 OTHER HISTORY: Negative Blood Transfusions, Blood Transfusion Reaction or Anesthesia Reactions Social History SMOKING STATUS: Never smoker SUBSTANCE USE: marijuana ED Exam General Limitations: Present no limitations General appearance: Present alert and in no apparent distress Head Head exam: Present atraumatic Eye Eye exam: Present normal appearance, PERRL and EOMI ENT ENT exam: Present normal exam, normal oropharynx and mucous membranes moist Neck Neck exam: Present normal inspection, full ROM and trachea midline Chest Chest inspection: Present normal inspection and symmetric chest wall rise Respiratory Respiratory exam: Present normal lung sounds bilaterally Cardiovascular Cardiovascular exam: Present regular rate, normal rhythm and normal heart sounds Abdominal Exam Abdominal exam: Present soft and normal bowel sounds Extremities Exam Extremities exam: Present normal inspection and full ROM Back Exam Back exam: Present normal inspection and full ROM Neurological Exam Neurological exam: Present alert, oriented X3, CN II-XII intact, normal gait and reflexes normal; Absent motor sensory deficit Psychiatric Psychiatric exam: Present normal affect and normal mood Skin Skin exam: Present warm, dry and other (Perineal early abscess not indurated) Course Quality Measures none Orders Category Date Time Status Clindamycin Vial [Cleocin vial] Med 11/20/24 15:21 Discontinued 600 mg IM X1 ONE Vital Signs Vital signs: Vital Signs Temperature 97.7 F 11/20/24 15:05 Pulse Rate 77 11/20/24 15:05 Respiratory Rate 18 11/20/24 15:05 Blood Pressure 137/84 H 11/20/24 15:05 Pulse Oximetry (%) 96 11/20/24 15:05 Oxygen Delivery Method Room Air 11/20/24 15:05 O2 saturation 96% room air within normal limits Urogenital - Male MDM Narrative MDM Narrative:: 39-year-old male presents emergency department today complaints of bump under scrotum x 1 month patient reports no fever nausea or vomiting patient does report recent renal stent placement I examined the patient patient has what appears to be a very small perianal abscess I do not believe an I&D is indicated at this time nor a CT Patient has had multiple CT scans recently which did not show any evidence of deep abscess Patient was given clindamycin here IM and discharged home with clindamycin I did explain to the patient that if his symptoms persist or worsen he will need to return for further surgical evaluation and possible intervention Patient discharged home in no distress to follow-up with primary care doctor in the next 24 to 48 hours and for any worsening symptoms to return to the ER immediately Patient data External records reviewed:: [facility] previous records Clinical information provided by:: patient Social determinants that could affect healthcare access:: none Patient has the following chronic illnesses:: See history How is presenting disease/condition affected by chronic disease/condition?: uneffected by Evaluation data The following diagnostics were reviewed and interpreted by me:: other (specify) (N/A) Lab and/or radiology exams considered but not ordered:: Consider not ordered Interpretation Summary: N/A Medications / Prescriptions Medications or Prescriptions considered but not ordered:: Given Medication administrations:: Medication Administration History Discontinued Medications Clindamycin Phosphate (Clindamycin Phos Inj 150 Mg/Ml Vial 6 Ml) 600 mg IM X1 ONE Stop: 11/20/24 15:22 Last Admin: 11/20/24 15:27 Dose: 600 mg Documented By: Given Consultations Consultation(s) initiated? (list below): No Diagnosis Urogenital Male Differential Diagnosis: other (Abscess, cellulitis, perianal abscess) Most likely diagnosis given after review of the tests above:: Perianal abscess Admission Indicated Admission indicated?: not indicated Admission Request Was there a request for admission?: No Disposition Plan Disposition Plan: Discharge Discharge Attestation Discharge Attestation: The patient and all family members were given an opportunity to ask questions and understood the discharge instructions. Discharge instructions specifically effects, indications for sooner follow up or return to the emergency department, and the expected course of current diagnosis. Patient condition: Stable Discharge Plan Plan Patient Disposition: HOME (Self Care) Disposition Comment: Stable Prescriptions/Referrals Prescriptions/Med Rec: New clindamycin HCl 150 mg capsule 450 mg PO TID 7 Days Qty: 63 0RF No Action famotidine [Pepcid] 40 mg tablet 40 mg PO QDAY Qty: 30 0RF tamsulosin [Flomax] 0.4 mg capsule 0.4 mg PO QDAY Qty: 14 0RF ibuprofen 800 mg tablet 800 mg PO Q6H PRN (Reason: pain) Qty: 10 0RF hydrocodone-acetaminophen 5-325 mg tablet 1 tab PO Q8H MDD 3 tabs/day PRN (Reason: pain) Qty: 10 0RF Problem List Clinical Impression: Perianal abscess Patient/Caregiver Discharge Instructions Education Materials: ED Abscess Antibiotic ... Additional Instructions: Please follow up with your primary care doctor in the next 24-48hrs for any worsening symptoms return here immediately If your symptoms persist or worsen he will have to return to the ER immediately for further evaluation Print Language: Divehi Stand Alone Forms: Nery Award Info., Patient Portal Info Letter PA/REIMBURSEMENT ANALYST Supervising Physician PA/REIMBURSEMENT ANALYST Supervising Physician: Dr. Larios
[2024-11-20] MEDS: CLINDAMYCIN PHOS INJ 150 MG/ML VIAL 6 ML 600 MG IM (15:27)
== END 2024-11-20 15:33 | disposition home or self-care (01) ==
PROVIDERS: Emergency Provider Emergency Medicine; PCP Family Medicine
DX: K61.0 Anal abscess (principal)
CPT/HCPCS: 96372; 99283; J0736

== ENCOUNTER → 2024-11-26 | Outpatient (BNVA) | payer MEDICAID, SELFPAY | END | disposition home or self-care (01) | PROVIDERS: Visit Provider Urology | DX: N32.89 Other specified disorders of bladder (principal); Z96.0 Presence of urogenital implants; N40.0 Benign prostatic hyperplasia without lower urinary tract symptoms | CPT/HCPCS: 52310; 81003; 96372; A4217; A4649; C1894; J1580; A9270 ==

== ENCOUNTER → 2024-12-19 | Outpatient (CLI) | payer MEDICAID, SELFPAY ==
--- NOTE | 2024-12-19 15:30 | XR_ITS ---
Examination: Retroperitoneal ultrasound, complete Technique: Multiple high resolution grayscale images of the retroperitoneum obtained, including kidneys and bladder. Exam date and time:December 19, 2024 1531 hours INDICATIONS: CT stone study November 18, 2024 left kidney stones FINDINGS: Right kidney 12.0 x 5.3 x 5.2 cm in the cortex 1.8 cm Left kidney 12.9 x 5.5 x 5.0 cm renal cortex 2.3 cm Mild bilateral renal parenchymal scar formation No hydronephrosis or renal calculi No bladder mass or bladder calculi Bladder prevoid volume 56 cc 0 cc postvoid Prostate normal size volume 10.57 cc no prostate nodules IMPRESSION: Mild bilateral renal parenchymal scar formation No hydronephrosis or renal calculi
== END | disposition home or self-care (01) ==
PROVIDERS: PCP Urology; Referring Provider Urology; Visit Provider Urology
DX: N28.89 Other specified disorders of kidney and ureter (principal)
CPT/HCPCS: 76770